=== PATIENT | male | born 1980 | race Caucasian/White ===

== ENCOUNTER 2021-01-20 12:06 | Outpatient (REF) | payer OTHER, SELFPAY ==
--- NOTE | ~2021-01-20 | XR_ITS ---
EXAMINATION: XR HAND, RIGHT CLINICAL INFORMATION: Right hand swelling. COMPARISON: None. TECHNIQUE: PA, lateral, and oblique views of the right hand. FINDINGS: There is a nondisplaced fracture base of 5th metacarpal. There is minimal soft tissue swelling. No additional bony abnormality seen. No joint abnormality seen. XR/XR hand RT min 3V IMPRESSION: Nondisplaced fracture base of 5th metacarpal. Mild soft tissue swelling. Results were conveyed to Dr. Justin Holden's office by phone at 12:46 p.m.
== END 2021-01-20 12:07 | disposition home or self-care (01) ==
LOC: HO.XRAY 12:06
PROVIDERS: PCP Internal Medicine; Visit Provider Family Medicine
DX: R60.0 Localized edema (principal); Z91.81 History of falling
CPT/HCPCS: 73130

== ENCOUNTER 2022-01-06 15:13 | Outpatient (REF) | payer OTHER, SELFPAY ==
[2022-01-06 15:58] LABS: COVID-19 Test Negative (Negative); IDNOW Serial# 16C4AD1C
== END 2022-01-06 15:14 | disposition home or self-care (01) ==
LOC: HO.LAB 15:13
PROVIDERS: Visit Provider Internal Medicine
DX: Z20.822 Contact with and (suspected) exposure to COVID-19 (principal)
CPT/HCPCS: 87635; C9803

== ENCOUNTER 2022-03-25 14:52 | Outpatient (REF) | payer OTHER, SELFPAY ==
[2022-03-25 15:08] LABS: MANUAL DIFF FLAG NO
[2022-03-25 15:15] LABS: Basophils Percent Auto 0.5 % (0-2); Eosinophils Absolute Auto 0.2 X10*3/uL (0.0-0.4); Eosinophils Percent Auto 3.1 % (0-4); Hematocrit 42.3 % (42.0-52.0); Hemoglobin 14.6 g/dl (14.0-18.0); Imm Gran Abs Auto 0.02 X10*3/uL (0.00-0.03); Imm Gran Pct Auto 0.3 % (0.0-0.4); Lymphocytes Absolute Auto 1.9 X10*3/uL (1.2-4.9); Lymphocytes Percent Auto 24.7 % (20-40); Mean Corpuscular HGB Conc 34.5 g/dl (31.0-36.0); Mean Corpuscular Hemoglobin 29.9 pg (27.0-33.0); Mean Corpuscular Volume 86.5 fL (80.0-98.0); Mean Platelet Volume 10.4 fL (9.4-12.4); Monocytes Absolute Auto 0.6 X10*3/uL (0.1-1.2); Monocytes Percent Auto 8.1 % (2-11); Neutrophils Absolute Auto 4.8 x10*3/uL (2.0-8.3); Neutrophils Percent Auto 63.3 % (45-73); Platelet Count 197 X10*3/uL (160-400); Red Blood Count 4.89 X10*6/uL (4.60-5.80); White Blood Count 7.6 X10*3/uL (4.8-10.8)
[2022-03-25 15:21] LABS: Prothrombin Time 11.1 SEC (10.0-13.1)
[2022-03-25 17:46] LABS: Alanine Aminotransferase 29 U/L (0-40); Albumin Level 4.3 g/dL (3.5-5.0); Alkaline Phosphatase 63 U/L (39-117); Aspartate Amino Transferase 80 U/L (5-37); Bilirubin Direct 0.2 mg/dL (0.0-0.5); Bilirubin Total 0.6 mg/dL (0.0-1.0); Iron 79 mcg/dL (45-160); Percent Iron Saturation 27 % (15-50); Total Iron Binding Capacity 289 mcg/dL (228-428); Total Protein 7.2 g/dL (6.5-8.0); Unsaturated Iron Binding 210 ug/dL
[2022-03-25 17:55] LABS: Ferritin 77 ng/mL (20-250); Lactate Dehydrogenase 170 U/L (118-273)
[2022-03-26 05:01] LABS: HBS Num1 > 1000.00 mIU/mL (0-7.99); HBc Num1 0.29 S/CO (0.00-0.79); HBsAGNum1 0.22 S/CO (0.00-0.99); Hepatitis B Core Antibody Nonreactive (Nonreactive); Hepatitis B Surface Antigen Negative (Negative); ~HepC Num1 0.06 S/CO (0.00-0.79); ~Hepatitis B Surface Antibody REACTIVE (Nonreactive); ~Hepatitis C Antibody Nonreactive (Nonreactive)
[2022-03-27 14:26] LABS: Anti Nuclear Antibody Screen NEGATIVE (NEGATIVE)
[2022-03-27 14:37] LABS: Alpha 1 Anti-trypsin 133 mg/dL (83-199); Ceruloplasmin 26 mg/dL (18-36)
[2022-03-29 23:02] LABS: Smooth Muscle Antibody <20 U (<20)
[2022-03-29 23:26] LABS: FIB-ALT 27 U/L (9-46); FIB-Alpha-2-Macroglobulin 171 mg/dL (106-279); FIB-Apolipoprotein A1 181 mg/dL (94-176); FIB-GGT 36 U/L (3-95); FIB-Haptoglobin 107 mg/dL (43-212); FIB-Total Bilirubin 0.5 mg/dL (0.2-1.2); Liver Fibrosis Score 0.12; Liver Fibrosis Stage F0; Nec Inflam Act Grade A0
[2022-03-30 16:02] LABS: Mitochondrial Antibodies NEGATIVE (NEGATIVE)
== END 2022-03-25 14:53 | disposition home or self-care (01) ==
LOC: HO.LAB 14:52
PROVIDERS: PCP Internal Medicine; Visit Provider Internal Medicine
DX: R79.89 Other specified abnormal findings of blood chemistry (principal)
CPT/HCPCS: 36415; 80076; 81596; 82103; 82390; 82550; 82728; 83540; 83615; 85025; 85610; 86015; 86038; 86039; 86255; 86256; 86704; 86706; 86803; 87340

== ENCOUNTER 2022-05-12 10:20 | Outpatient (REF) | payer OTHER, SELFPAY ==
--- NOTE | ~2022-05-12 | US_ITS ---
EXAMINATION: US ABDOMEN COMPLETE CLINICAL INFORMATION: Elevated LFTs. COMPARISON: None TECHNIQUE: Real-time imaging of the abdominal viscera. FINDINGS: PANCREAS: Normal. ABDOMINAL AORTA: The proximal, mid, and distal segments are normal in caliber. INFERIOR VENA CAVA: Visualized portions are normal. LIVER: Normal. The liver is normal in size. The liver contour is normal. Parenchymal echogenicity is normal. No focal hepatic lesion. There is no intrahepatic biliary duct dilatation seen. GALLBLADDER: There is a hypoechoic lesion along the inner gallbladder wall measuring 0.2 x 0.2 x 0.3 cm. Gallbladder wall thickness is 0.3 cm. The gallbladder is physiologically distended without evidence of stones, sludge, wall thickening or pericholecystic fluid. COMMON BILE DUCT: Normal in caliber measuring 0.3 cm in diameter. RIGHT KIDNEY: Normal. No hydronephrosis. No renal calculi or focal parenchymal lesions. The kidney measures 9.1 cm in maximum dimension. LEFT KIDNEY: There is a small echogenic stone measuring 0.4 x 0.6 x 0.6 cm without caliectasis. No hydronephrosis or focal parenchymal lesions. The kidney measures 8.8 cm in maximum dimension. SPLEEN: Normal. The spleen measures 8.2 cm in maximum dimension. FREE FLUID: None. US/US abdomen complete IMPRESSION: Nonobstructive echogenic stone upper pole left kidney without caliectasis. Small gallbladder polyp measuring 3 mm. The rest of the abdominal ultrasound is unremarkable.
== END 2022-05-12 10:21 | disposition home or self-care (01) ==
LOC: HO.US 10:20
PROVIDERS: Visit Provider Internal Medicine
DX: R79.89 Other specified abnormal findings of blood chemistry (principal)
CPT/HCPCS: 76700

== ENCOUNTER 2022-09-04 09:52 | Day surgery (SDC) | payer OTHER, SELFPAY ==
--- NOTE | 2022-09-03 12:24 | HO.ANESPROP2 ---
HPI - Anesthesia Eval Consult details Narrative: 42yo M for Upper Endoscopy with Balloon Dilitation PMFSH Past Medical History Medical History Elevated aspartate aminotransferase level Hyperlipidemia Vertigo Surgical History Surgical History H/O oral surgery Social History Social History Patient Tobacco Use Status: Never used Tobacco Use of substances other than those prescribed or required for medical reasons: No Are you DNR?: No Advance Directives: No Advance Directives Information Provided: Yes Meds Allergies Allergy/AdvReac Type Severity Reaction Status Date / Time No Known Allergies Allergy Verified 09/03/22 12:29 Home Medications Medication Instructions Recorded Confirmed Last Taken Type No Known Home Meds 09/03/22 09/03/22 Unknown History Exam Exam Date and Time: September 03, 2022 1224 Pertinent Lab Results Pertinent Lab Results: Laboratory Tests 03/25/22 15:07 WBC 7.6 Hgb 14.6 Hct 42.3 Plt Count 197 Assessment and Plan Assessment Anesthesia Assessment: Chart Reviewed
[2022-09-04 10:09] VITALS: BP 115/83; PULSE 56; RESP 18; TEMP 36.1; O2SAT 99; BMI 25.5
[2022-09-04] MEDS: Lactated Ringers 1,000 ML 100 ML IVCONT (10:31)
--- NOTE | 2022-09-04 11:05 | PM.ANESPN ---
Subjective Subjective Date of Service: 09/04/22 Physical Exam Vital Signs: Vital Signs: Last Vital Signs Temp 97.0 F 09/04/22 10:09 Pulse 56 09/04/22 10:09 Resp 18 09/04/22 10:09 BP 115/83 09/04/22 10:09 Pulse Ox 99 09/04/22 10:09 O2 Del Method 09/04/22 10:09 BMI result Body Mass Index 25.5 Progress Note: A&P Time Spent With Patient Time: Total time managing care of this patient today ____ minutes.
--- NOTE | 2022-09-04 11:52 | P.BOP_ITS ---
Brief Operative Note Date of Service: 09/04/22 Pre-op diagnosis: Dysphagia Post-op diagnosis: other (Hiatal hernia) Procedure: EGD with balloon dilation and biopsies Surgeon: James Rodriguez Anesthesia: MAC Was an Ophthalmic Technician used for this Procedure?: No Estimated blood loss (mL): 2.0 Pathology: other (A. Esophagus at 25cm) Condition: stable Disposition: PACU
[2022-09-04 11:53] VITALS: BP 97/59; PULSE 97; RESP 16; TEMP 36.8; O2SAT 97
[2022-09-04 12:14] VITALS: BP 118/74; PULSE 86; RESP 18; TEMP 36.7; O2SAT 99
--- NOTE | 2022-09-04 21:07 | OP_ITS ---
SURGEON: James Rodriguez MD INDICATIONS: The patient presents for evaluation of intermittent dysphagia. Full consent has been obtained from him for this, including risks of bleeding and perforation. PREOPERATIVE DIAGNOSIS: Dysphagia. POSTOPERATIVE DIAGNOSIS: PROCEDURE PERFORMED: Esophagogastroduodenoscopy with balloon dilation of the gastroesophageal junction and biopsies. ESTIMATED BLOOD LOSS: COMPLICATIONS: ANESTHESIA: Monitored anesthesia care. ASSISTANTS: SPECIMENS: POSTOPERATIVE DIAGNOSES: Dysphagia, small hiatal hernia, rule out eosinophilic esophagitis. DESCRIPTION OF PROCEDURE: The patient was placed in the left lateral decubitus position. The Olympus video gastroscope was passed into the posterior oropharynx and upper esophagus under direct vision. The scope was passed slowly to the distal esophagus. The gastroesophageal junction appeared at 38 cm. This area was notable for some slight edema, but no evidence of any definitive esophageal ring nor stricture. There was no inflammation nor Moss's mucosa. The scope easily entered into the stomach. There was a small hiatal hernia. The scope was advanced to the pylorus and the duodenum was cannulated to the descending portion. The duodenum including the bulb appeared normal without mass or ulceration. The scope was withdrawn back in the stomach. The gastric antrum and body appeared normal with good peristalsis. The scope was retroflexed visualizing the proximal stomach carefully, which appeared normal, without any sign of mass or ulceration. The scope was straightened and withdrawn back into the esophagus. With insufflation of air I did not visualize any definitive stricture nor ring at the gastroesophageal junction. However, due to his symptoms, I did use a [employer] incremental balloon to dilate the gastroesophageal junction from 18 mm to 19 mm at the recommended pressure for 60 seconds each. There was heme noted post dilation. The scope was withdrawn through the remainder of the esophagus. The proximal esophagus appeared normal without any esophageal rings, stricture, nor web. Biopsies were obtained at 25 cm to rule out eosinophilic esophagitis. The scope was withdrawn from the patient. He tolerated the procedure well and was returned to the recovery area in stable condition. IMPRESSION: 1. Small hiatal hernia. 2. Status post balloon dilation of gastroesophageal junction. 3. Rule out eosinophilic esophagitis. PLAN: The results of the biopsies will be checked. I am going to start him on omeprazole 20 mg daily for at least a month or 2. We shall see if the balloon dilation and the medication help improve his swallowing in regard to the intermittent episodes of dysphagia. He will be seen in followup in the Spring. He will have a followup liver profile at that time as well. This has been discussed with his . He was advised not to use any aspirin and NSAIDs for at least a week. MD DARRELL Boogie/GUSTAVO / [id number] MTDD
== END 2022-09-04 12:59 | disposition home or self-care (01) ==
PROVIDERS: PCP Internal Medicine; Visit Provider Internal Medicine
PROC: (CPT 43249; principal; 2022-09-04 11:10)
DX: R13.10 Dysphagia, unspecified (principal); K44.9 Diaphragmatic hernia without obstruction or gangrene; E78.5 Hyperlipidemia, unspecified; R42 Dizziness and giddiness; R79.89 Other specified abnormal findings of blood chemistry
CPT/HCPCS: 43249; 43239; 88305; C1726

== ENCOUNTER 2022-12-04 10:47 | Outpatient (REF) | payer OTHER, SELFPAY ==
[2022-12-04 10:55] LABS: MANUAL DIFF FLAG NO
[2022-12-04 11:33] LABS: Basophils Absolute Auto 0.1 X10*3/uL (0.0-0.2); Basophils Percent Auto 0.8 % (0-2); Eosinophils Absolute Auto 0.2 X10*3/uL (0.0-0.4); Eosinophils Percent Auto 3.6 % (0-4); Hematocrit 43.8 % (42.0-52.0); Hemoglobin 15.1 g/dl (14.0-18.0); Imm Gran Abs Auto 0.02 X10*3/uL (0.00-0.03); Imm Gran Pct Auto 0.3 % (0.0-0.4); Lymphocytes Absolute Auto 1.8 X10*3/uL (1.2-4.9); Lymphocytes Percent Auto 29.7 % (20-40); Mean Corpuscular HGB Conc 34.5 g/dl (31.0-36.0); Mean Corpuscular Volume 87.1 fL (80.0-98.0); Mean Platelet Volume 10.6 fL (9.4-12.4); Monocytes Absolute Auto 0.5 X10*3/uL (0.1-1.2); Monocytes Percent Auto 7.9 % (2-11); Neutrophils Absolute Auto 3.5 x10*3/uL (2.0-8.3); Neutrophils Percent Auto 57.7 % (45-73); Platelet Count 217 X10*3/uL (160-400); Red Blood Count 5.03 X10*6/uL (4.60-5.80); Red Cell Distribution Width 13.2 % (11.0-16.0); White Blood Count 6.1 X10*3/uL (4.8-10.8)
[2022-12-04 11:39] LABS: Appearance Urine Clear; Color Urine Yellow; Glucose Urine UA Negative (Negative); Leukocyte Esterase Urine Negative (Negative); Nitrite Urine Negative (Negative); PH 5.5 (5.0-9.0); Specific Gravity - Urine 1.025 (1.005-1.025); Urine Blood Negative (Negative); Urine Ketones Trace mg/dL (Negative); Urine Protein Negative (Neg-Trace)
[2022-12-04 12:03] LABS: Alanine Aminotransferase 36 U/L (0-40); Albumin Level 4.1 g/dL (3.5-5.0); Alkaline Phosphatase 69 U/L (39-117); Anion Gap 13 (12-20); Aspartate Amino Transferase 87 U/L (5-37); Bilirubin Direct 0.2 mg/dL (0.0-0.5); Blood Urea Nitrogen 17 mg/dL (9-16); Calcium 9.4 mg/dL (8.4-10.2); Carbon Dioxide 27 mmol/L (22-29); Chloride 104 mmol/L (96-108); Cholesterol 303 mg/dL; Estimated Glomerular Filt Rate > 60; Glucose Fasting 81 mg/dL (60-99); HDL Cholesterol 63 mg/dL; LDL Cholesterol Calculated 226 mg/dl; Potassium 4.3 mmol/L (3.3-5.1); Sodium 140 mmol/L (135-145); Total Protein 6.8 g/dL (6.5-8.0); Triglycerides 71 mg/dL
[2022-12-04 12:07] LABS: PSA,Total (Free>4and<10) 0.42 ng/mL (0.00-4.00)
== END 2022-12-04 10:48 | disposition home or self-care (01) ==
LOC: HO.LNP 10:47
PROVIDERS: Visit Provider Internal Medicine
DX: Z00.00 Encounter for general adult medical examination without abnormal findings (principal); Z12.5 Encounter for screening for malignant neoplasm of prostate; E78.00 Pure hypercholesterolemia, unspecified; K76.89 Other specified diseases of liver
CPT/HCPCS: 80053; 80061; 80076; 81003; 84153; 85025

== ENCOUNTER 2023-01-30 14:58 | Emergency (ER) | payer OTHER, SELFPAY ==
[2023-01-30 15:03] VITALS: BP 116/86; PULSE 79; RESP 18; TEMP 36.1; O2SAT 97; BMI 25.1
--- NOTE | 2023-01-30 15:05 | ED_ITS ---
HPI - General Adult General Chief complaint: Skin/Abscess/Foreign Body Stated complaint: l pinky inj Time Seen by Provider: 01/30/23 15:23 Source: patient Mode of arrival: ambulatory Limitations: no limitations History of Present Illness HPI narrative: 42-year-old male left-hand dominant healthy here with piece of pressure treated wood in left 5th digit which occurred today. Patient tried removing but was unsuccessful at home. Patient denies any weakness, numbness or tingling of the extremity Related Data Previous Rx's Medication Instructions Recorded cephalexin 500 mg capsule 500 mg PO BID #14 caps 01/30/23 Allergies Allergy/AdvReac Type Severity Reaction Status Date / Time No Known Allergies Allergy Verified 09/03/22 12:29 Review of Systems Review of Systems: Yes all other systems are reviewed and are negative Constitutional: Constitutional: Reports no additional constitutional complaints, Denies body ache(s), Denies chills, Denies fever(s), Denies headache(s) and Denies weakness Eyes: Eyes: Reports no additional eye complaints and Denies change in vision ENT: Reports system reviewed and no additional complaints, except as documented, Denies dizziness, Denies headache(s), Denies nasal congestion, Denies nasal discharge and Denies neck pain Cardiovascular: Cardiovascular: Reports no additional cardiovascular complaints, Denies chest pain, Denies leg edema and Denies dyspnea Respiratory: Respiratory: Reports no additional respiratory complaints, Denies cough and Denies dyspnea Gastrointestinal: Gastrointestinal: Reports no additional gastrointestinal complaints, Denies abdominal pain, Denies diarrhea, Denies nausea and Denies vomiting Genitourinary: Genitourinary: Denies urinary incontinence Musculoskeletal: Musculoskeletal: Reports no additional musculoskeletal complaints, Denies back pain, Reports arthralgias, Denies joint swelling, Denies neck pain, Denies numbness and Denies tingling Integumentary/Breasts: Skin/Breast: Reports system reviewed and no additional complaints, except as docu and Denies rash Neurologic: Reports system reviewed and no additional complaints, except as documented, Denies dizziness, Denies headache(s), Denies numbness, Denies tingling and Denies weakness PMF Past Medical History Attestation statement: The following information was validated with the patient. Source: old records reviewed and nursing notes reviewed Medical History Elevated aspartate aminotransferase level Hyperlipidemia Vertigo Surgical History H/O oral surgery Social History Social History Alcohol intake: current Alcohol intake frequency: a few times a week Patient Tobacco Use Status: Never used Tobacco Physical Exam ED Vital Signs: Vital Signs - 24 hr 01/30/23 15:03 01/30/23 15:30 Temperature 97 F Pulse Rate 79 74 Respiratory Rate 18 Blood Pressure 116/86 Pulse Oximetry 97 97 Oxygen Delivery Method Room Air Room Air BMI result Body Mass Index 25.1 Const General: cooperative, healthy appearing and comfortable Orientation/consciousness: patient oriented x3 Limitations: no limitations HENMT Head: Yes normal to inspection Ears: hearing grossly normal bilaterally Eyes General: appearance normal, both eyes and all related structures Neck Neck: Yes normal visual inspection Chest Chest palpation & inspection: normal inspection of the chest Resp Effort & Inspection: normal respiratory effort Skin General skin exam: no rashes or lesions noted Neuro General: patient oriented x3 Cognition (Neuro): normal cognition Gait exam (Neuro): Normal gait present Extrem Other: Over the left hand on the 5th distal aspect of the digit there is an abrasion noted over the volar aspect with with local ecchymosis, swelling. Visually I do not see a FB however when I run the tweezers over the wound it feels that there is a FB under the skin Course Course Course Narrative: 42 year old male presents for evaluation of a wood splinter to left 5th finger. X-ray ordered Reevaluation(s) Reevaluation #1: Initially it felt as if there was a FB under the skin on palpation however after making a small incision and exploring the wound thoroughly I do not feel or visualize a FB. It is possible it may be deeper or was removed [employer] without the patient noticing. Will refer to hand surgery, prescribe pptx antibiotics. Medications Administered Discontinued Medications Generic Name Dose Route Start Last Admin Trade Name Freq PRN Reason Stop Dose Admin Lidocaine HCl 2 ml 01/30/23 15:27 01/30/23 15:38 Lidocaine Hcl 1 % Mpf 2 Ml Vial INFILTRATI 01/30/23 15:28 2 ml ONCE ONE Administration Lidocaine HCl 2 ml 01/30/23 15:27 01/30/23 15:38 Lidocaine Hcl 1 % Mpf 2 Ml Vial INFILTRATI 01/30/23 15:28 2 ml ONCE ONE Administration Procedures Nerve Block Nerve Block 1: Local Anesthetic: lidocaine 1% Amount of anesthesia used (mL): 3 Side: left Nerve Blocks: digital Procedure Successful: No Patient Tolerated Procedure: well Medical Decision Making Medical Decision Making MDM Narrative: 42-year-old male here with concern for piece of pressure treated would within his left hand 5th digit which was unable to remove prior to arrival Will need digital, attempt at soft tissue foreign body removal Differential Diagnosis Differential Diagnoses: The differential diagnosis associated with the presentation includes Consult Healthcare Provider Management of the patient was discussed with: Doctor Of Nursing Practice Concern for retained FB-Spoke to [facility] so that patient may f/u outpatient with hand surgery Discharge Plan Discharge Clinical Impression: Foreign body (FB) in soft tissue Patient Disposition: Home, Self-Care Instructions: Soft Tissue Foreign Body (ED) Additional Instructions: I am unsure if there is still a piece of wood in your finger. Therefore I am having you follow-up with the hand surgeon to make sure that there is no additional foreign body. Please monitor the site for infection return for fever, drainage, redness. Take Motrin or Tylenol for pain as needed. Take the antibiotics as prescribed Prescriptions: New cephalexin 500 mg capsule 500 mg PO BID Qty: 14 0RF Referrals: [facility] – [place] [facility] [Provider Group] - 1 week (Dr Fern Gilliland ) Domingo Barr MD [Primary Care Provider] - 1 week (as needed)
[2023-01-30 15:30] VITALS: PULSE 74; O2SAT 97
--- NOTE | 2023-01-30 15:31 | PC.NURSE ---
Patient presents with splinter to the right pinky finger. Patient otherwise well appearing without any other complaints.
--- NOTE | 2023-01-30 15:33 | PC.NURSE ---
Pt presents with sliver in left pinky finger that he got from picking up a piece of pressure treated wood about 2hrs ago. Pt rates pain 3/10. Pt airway open and patent, no obvious signs of distress, equal chest rise and fall, no difficulty/labored breathing. No edema noted.
[2023-01-30] MEDS: Lidocaine HCl 1 % MPF 2 ML VIAL INFILTRATI ×2 (15:38)
[2023-01-30 16:17] VITALS: BP 118/73; PULSE 67; RESP 16; O2SAT 100
== END 2023-01-30 16:20 | disposition home or self-care (01) ==
LOC: HO.ED 16:13
PROVIDERS: Emergency Provider Emergency Medicine; PCP Internal Medicine
DX: S61.247A Puncture wound with foreign body of left little finger without damage to nail, initial encounter (principal); W45.8XXA Other foreign body or object entering through skin, initial encounter; Y93.9 Activity, unspecified; Y92.019 Unspecified place in single-family (private) house as the place of occurrence of the external cause; Y99.9 Unspecified external cause status
CPT/HCPCS: 10120; 99284

== ENCOUNTER 2023-03-05 10:41 | Outpatient (REF) | payer OTHER, SELFPAY ==
[2023-03-05 11:49] LABS: Alanine Aminotransferase 51 U/L (0-40); Albumin Level 4.1 g/dL (3.5-5.0); Alkaline Phosphatase 71 U/L (39-117); Aspartate Amino Transferase 96 U/L (5-37); Bilirubin Direct 0.3 mg/dL (0.0-0.5); Bilirubin Total 1.1 mg/dL (0.0-1.0); Cholesterol 191 mg/dL; HDL Cholesterol 67 mg/dL; LDL Cholesterol Calculated 112 mg/dl; Total Protein 6.7 g/dL (6.5-8.0); Triglycerides 63 mg/dL
== END 2023-03-05 10:42 | disposition home or self-care (01) ==
LOC: HO.LNP 10:41
PROVIDERS: Visit Provider Internal Medicine
DX: E78.00 Pure hypercholesterolemia, unspecified (principal)
CPT/HCPCS: 80061; 80076

== ENCOUNTER 2023-12-09 11:19 | Outpatient (REF) | payer OTHER, SELFPAY ==
[2023-12-09 11:23] LABS: MANUAL DIFF FLAG NO
[2023-12-09 11:52] LABS: Basophils Absolute Auto 0.1 X10*3/uL (0.0-0.2); Basophils Percent Auto 0.8 % (0-2); Eosinophils Absolute Auto 0.3 X10*3/uL (0.0-0.4); Eosinophils Percent Auto 4.9 % (0-4); Hematocrit 41.5 % (42.0-52.0); Hemoglobin 14.4 g/dl (14.0-18.0); Imm Gran Abs Auto 0.02 X10*3/uL (0.00-0.03); Imm Gran Pct Auto 0.3 % (0.0-0.4); Lymphocytes Absolute Auto 1.9 X10*3/uL (1.2-4.9); Lymphocytes Percent Auto 30.9 % (20-40); Mean Corpuscular HGB Conc 34.7 g/dl (31.0-36.0); Mean Corpuscular Hemoglobin 30.3 pg (27.0-33.0); Mean Corpuscular Volume 87.4 fL (80.0-98.0); Monocytes Absolute Auto 0.4 X10*3/uL (0.1-1.2); Monocytes Percent Auto 7.2 % (2-11); Neutrophils Absolute Auto 3.4 x10*3/uL (2.0-8.3); Neutrophils Percent Auto 55.9 % (45-73); Platelet Count 186 X10*3/uL (160-400); Red Blood Count 4.75 X10*6/uL (4.60-5.80); Red Cell Distribution Width 13.2 % (11.0-16.0); White Blood Count 6.1 X10*3/uL (4.8-10.8)
[2023-12-09 11:56] LABS: Appearance Urine Clear; Color Urine Yellow; Glucose Urine UA Negative (Negative); Leukocyte Esterase Urine Negative (Negative); Nitrite Urine Negative (Negative); Specific Gravity - Urine 1.025 (1.005-1.025); Urine Blood Negative (Negative); Urine Ketones Negative (Negative); Urine Protein Negative (Neg-Trace)
[2023-12-09 12:01] LABS: Bacteria Urine None Seen (None Seen); Hyaline Casts Urine 0-2 /LPF (0-2); RBC Urine 0-2 /HPF (0-2); Squamous Epithelial Cell Urine 0-2 /HPF (0-2); WBC Urine 0-5 /HPF (0-5)
[2023-12-09 12:11] LABS: Alanine Aminotransferase 43 U/L (0-40); Albumin Level 3.9 g/dL (3.5-5.0); Alkaline Phosphatase 57 U/L (39-117); Anion Gap 11 (12-20); Aspartate Amino Transferase 84 U/L (5-37); Bilirubin Direct 0.3 mg/dL (0.0-0.5); Bilirubin Total 0.7 mg/dL (0.0-1.0); Blood Urea Nitrogen 13 mg/dL (9-16); Calcium 9.5 mg/dL (8.4-10.2); Carbon Dioxide 27 mmol/L (22-29); Chloride 108 mmol/L (96-108); Cholesterol 174 mg/dL (<200); Estimated Glomerular Filt Rate > 60; Glucose Fasting 96 mg/dL (60-99); HDL Cholesterol 71 mg/dL (>40); LDL Cholesterol Calculated 92 mg/dL (<100); Potassium 4.1 mmol/L (3.3-5.1); Sodium 142 mmol/L (135-145); Total Protein 6.7 g/dL (6.5-8.0); Triglycerides 58 mg/dL (<150)
[2023-12-09 12:29] LABS: PSA,Total (Free>4and<10) 0.37 ng/mL (0.00-4.00)
== END 2023-12-09 11:20 | disposition home or self-care (01) ==
LOC: HO.LNP 11:19
PROVIDERS: Visit Provider Internal Medicine
DX: Z00.00 Encounter for general adult medical examination without abnormal findings (principal); Z12.5 Encounter for screening for malignant neoplasm of prostate; E78.00 Pure hypercholesterolemia, unspecified; K76.89 Other specified diseases of liver
CPT/HCPCS: 80053; 80061; 80076; 81001; 82248; 84153; 85025

== ENCOUNTER 2024-04-24 11:06 | Outpatient (REF) | payer BC, SELFPAY ==
[2024-04-24 11:20] LABS: MANUAL DIFF FLAG NO
[2024-04-24 11:42] LABS: Basophils Percent Auto 0.6 % (0-2); Eosinophils Absolute Auto 0.2 X10*3/uL (0.0-0.4); Hematocrit 41.6 % (42.0-52.0); Hemoglobin 14.7 g/dl (14.0-18.0); Imm Gran Abs Auto 0.02 X10*3/uL (0.00-0.03); Imm Gran Pct Auto 0.3 % (0.0-0.4); Lymphocytes Absolute Auto 1.4 X10*3/uL (1.2-4.9); Lymphocytes Percent Auto 22.3 % (20-40); Mean Corpuscular HGB Conc 35.3 g/dl (31.0-36.0); Mean Corpuscular Hemoglobin 31.1 pg (27.0-33.0); Mean Corpuscular Volume 88.1 fL (80.0-98.0); Mean Platelet Volume 10.3 fL (9.4-12.4); Monocytes Absolute Auto 0.5 X10*3/uL (0.1-1.2); Monocytes Percent Auto 8.2 % (2-11); Neutrophils Absolute Auto 4.1 x10*3/uL (2.0-8.3); Neutrophils Percent Auto 65.6 % (45-73); Platelet Count 197 X10*3/uL (160-400); Red Blood Count 4.72 X10*6/uL (4.60-5.80); Red Cell Distribution Width 12.7 % (11.0-16.0); White Blood Count 6.3 X10*3/uL (4.8-10.8)
[2024-04-24 12:07] LABS: Alanine Aminotransferase 46 U/L (0-40); Albumin Level 4.1 g/dL (3.5-5.0); Alkaline Phosphatase 71 U/L (39-117); Anion Gap 11 (12-20); Aspartate Amino Transferase 91 U/L (5-37); Bilirubin Total 0.6 mg/dL (0.0-1.0); Blood Urea Nitrogen 11 mg/dL (9-16); Calcium 9.4 mg/dL (8.4-10.2); Carbon Dioxide 28 mmol/L (22-29); Chloride 105 mmol/L (96-108); Estimated Glomerular Filt Rate > 60; Glucose Random 86 mg/dL (60-115); Potassium 5.2 mmol/L (3.3-5.1); Sodium 139 mmol/L (135-145); Total Protein 7.1 g/dL (6.5-8.0)
[2024-04-24 12:29] LABS: Erythrocyte Sedimentation Rate 7 MM/HR (0-15)
== END 2024-04-24 11:07 | disposition home or self-care (01) ==
LOC: HO.LAB 11:06
PROVIDERS: PCP Internal Medicine; Visit Provider Family Medicine
DX: R10.12 Left upper quadrant pain (principal)
CPT/HCPCS: 36415; 80053; 85025; 85652

== ENCOUNTER 2024-04-27 11:04 | Outpatient (REF) | payer BC, SELFPAY ==
[2024-04-27 11:28] LABS: Potassium 4.2 mmol/L (3.3-5.1)
== END 2024-04-27 11:05 | disposition home or self-care (01) ==
LOC: HO.LNP 11:04
PROVIDERS: Visit Provider Internal Medicine
DX: E78.5 Hyperlipidemia, unspecified (principal)
CPT/HCPCS: 84132

== ENCOUNTER 2024-12-07 11:01 | Outpatient (REF) | payer BC, SELFPAY ==
[2024-12-07 11:04] LABS: MANUAL DIFF FLAG NO
[2024-12-07 11:37] LABS: Basophils Absolute Auto 0.1 X10*3/uL (0.0-0.2); Basophils Percent Auto 1.3 % (0-2); Eosinophils Absolute Auto 0.3 X10*3/uL (0.0-0.4); Eosinophils Percent Auto 4.1 % (0-4); Hematocrit 42.7 % (42.0-52.0); Hemoglobin 14.8 g/dl (14.0-18.0); Imm Gran Abs Auto 0.02 X10*3/uL (0.00-0.03); Imm Gran Pct Auto 0.3 % (0.0-0.4); Lymphocytes Absolute Auto 1.8 X10*3/uL (1.2-4.9); Lymphocytes Percent Auto 28.1 % (20-40); Mean Corpuscular HGB Conc 34.7 g/dl (31.0-36.0); Mean Corpuscular Volume 86.6 fL (80.0-98.0); Mean Platelet Volume 10.8 fL (9.4-12.4); Monocytes Absolute Auto 0.5 X10*3/uL (0.1-1.2); Monocytes Percent Auto 8.2 % (2-11); Neutrophils Absolute Auto 3.7 x10*3/uL (2.0-8.3); Platelet Count 196 X10*3/uL (160-400); Red Blood Count 4.93 X10*6/uL (4.60-5.80); Red Cell Distribution Width 13.2 % (11.0-16.0); White Blood Count 6.3 X10*3/uL (4.8-10.8)
[2024-12-07 11:38] LABS: Appearance Urine Clear; Color Urine Yellow; Glucose Urine UA Negative (Negative); Leukocyte Esterase Urine Negative (Negative); Nitrite Urine Negative (Negative); PH 6.5 (5.0-9.0); Specific Gravity - Urine 1.025 (1.005-1.025); Urine Blood Negative (Negative); Urine Ketones Trace mg/dL (Negative); Urine Protein Negative (Neg-Trace)
[2024-12-07 11:41] LABS: Bacteria Urine None Seen (None Seen); Hyaline Casts Urine 0-2 /LPF (0-2); RBC Urine 0-2 /HPF (0-2); Squamous Epithelial Cell Urine 0-2 /HPF (0-2); WBC Urine 0-5 /HPF (0-5)
[2024-12-07 11:53] LABS: Albumin Level 3.9 g/dL (3.5-5.0); Alkaline Phosphatase 61 U/L (39-117); Anion Gap 9 (12-20); Aspartate Amino Transferase 132 U/L (5-37); Bilirubin Total 0.6 mg/dL (0.0-1.0); Blood Urea Nitrogen 14 mg/dL (9-16); Carbon Dioxide 27 mmol/L (22-29); Chloride 107 mmol/L (96-108); Cholesterol 183 mg/dL (<200); Estimated Glomerular Filt Rate > 60; Glucose Fasting 85 mg/dL (60-99); HDL Cholesterol 68 mg/dL (>40); LDL Cholesterol Calculated 105 mg/dL (<100); Potassium 3.9 mmol/L (3.3-5.1); Sodium 139 mmol/L (135-145); Triglycerides 52 mg/dL (<150)
[2024-12-07 13:12] LABS: Alanine Aminotransferase 66 U/L (0-40)
== END 2024-12-07 11:02 | disposition home or self-care (01) ==
LOC: HO.LNP 11:01
PROVIDERS: Visit Provider Internal Medicine
DX: Z00.00 Encounter for general adult medical examination without abnormal findings (principal); E78.00 Pure hypercholesterolemia, unspecified; N40.0 Benign prostatic hyperplasia without lower urinary tract symptoms; Z12.5 Encounter for screening for malignant neoplasm of prostate
CPT/HCPCS: 80053; 80061; 81001; 84153; 85025

== ENCOUNTER 2025-04-13 15:11 | Outpatient (AMB) | payer BC, SELFPAY ==
--- OUTSIDE RECORDS SUMMARY | 2025-04-13 15:13 | XMS_ITS | Patient Health Record ---
Author Organization [facility] Address [address] [place] [address] Care Team Providers Care Supervisor Slashing Department Name Role Phone Domingo Barr MD Primary Care Provider Mika Fisher Unavailable [phone] Reason For Referral No Information Social History Tobacco Use: Social History Observation Description Date Details (start date - stop date) Never Smoker NA - NA Tobacco Use/Smoking Question Answer Notes Are you a: nonsmoker Additional Findings: Tobacco Non-User Current no n-smoker Alcohol Screen Question Answer Notes Did you have a drink containing alcohol in the p ast year? Yes Points 0 Interpretation Negative Problems Problem Type SNOMED Code ICD Code Onset Dates Problem Status W/U Status Risk Notes Problem Plantar fascial fibromatosis (M72.2) Active confirmed Plan Of Treatment No Information Insurance Providers Payer Name Payer Address Payer Phone Subscriber Number Group Number Insured Name Patient Relationship to Insured Coverage Start Date Coverage End Date [employer] [address] [place] [address] [id number] Kannan Rodriguez Self - patient is the insured Medical (General) History Medical History History ICD Code Chicken pox
--- OUTSIDE RECORDS SUMMARY | 2025-04-13 15:13 | XMS_ITS | Patient Health Record ---
Author Organization [facility] Address [address] [place] [address] Care Team Providers Care Green Building Energy Engineer Name Role Phone Momo PELAYO, Domingo Primary Care Provider James Rivers Unavailable [phone] Allergies No Known Allergies Reason For Referral No Information Medications Medication SIG (Take, Route, Frequency, Duration) Notes Start Date End Date Status Atorvastatin Calcium 10 MG Oral for 90 Active Omeprazole 20 MG Oral for 90 A ctive Immunizations Vaccine Route Administration Date Status Comme nts Influenza Unknown 06/20/2021 Administered Social History Tobacco Use: Social History Observation Description Date Details (start date - stop date) Never Smoker NA - NA Tobacco Use/Smoking Question Answer Notes Patient is a nonsmoker Alcohol Screen Question Answer Notes Did you have a drink contain ing alcohol in the past year? Yes How often did you have a dri nk containing alcohol in the past year? 2 to 4 times a month (2 points) How many drinks did you have on a typical day when you were drinking in the past year? 1 or 2 drinks (0 point) How often did you have 6 or more drinks on one occasion in the past year? Never (0 point) Points 2 Interpretation Negative Section Notes: Nonsmoker; no sig alcohol Nonsmoker; no sig alcohol Nonsmoker; no sig alcohol Problems Problem Type SNOMED Code ICD Code Onset Dates Problem Status W/U Status Risk Notes Problem Dysphagia (15459882) Dysphagia (R13.10) Active confirmed Problem Elevated liver enzymes level ([id number]) Elevated liver function tests (R79.89) Active confirmed Problem Fatty liver (K76.0) Active confirmed Plan Of Treatment Pending Test Test Name Order Date LIVER PROFILE 07/21/2022 LIVER PROFILE 03/25/2022 LDH 07/21/2022 LDH 03/25/2022 CPK 07/21/2022 CPK 03/25/2022 CBC w DIFF 03/25/2022 PROTHROMBIN TIME (PT, INR) 03/25/2022 HEPATITIS B, C PROFILE 03/25/2022 [id number] (A1A) 03/25/2022 ALDOLASE 07/21/2022 US ABD 03/25/2022 FLUOR. ANTINUCLEAR AB SCREEN (SAULO) 02/2022 Future Test Test Name Order Date UPPER GI ENDOSCOPY BALLOOON DILATION OF ESOPH 07/21/2022 Insurance Providers Payer Name Payer Address Payer Phone Subscriber Number Group Number Insured Name Patient Relationship to Insured Coverage Start Date Coverage End Date [facility] [address] [place] [address] [phone] [id number] SHEYLA GARCIA Self - patient is the insured Medical (General) History Medical History History ICD Code Denies UT,DM,CVA,Lung disease,renal dise ase Hyperlipidemia Long-standing elevation of h is AST with otherwise normal liver profiles and a completely negative liver workup in 2021. His CPK and LDH were normal as well. It was felt that his hyperlipidemia could be causing fatty liver and possible elevated AST on that basis GERD and dysphagia. He under went an upper endoscopy in August of 2022 with a finding of a small hiatal hernia but no definitive esophageal ring or stricture. There was no esophagitis nor Moss's esophagus. I did use a large balloon to 19 mm to dilate the gastroesophageal junction. Biopsies from proximal esophagus were negative for eosinophilic esophagitis. Subsequent to that procedure, as well as with remaining on omeprazole, he did have a definite improvement in his swallowing. Surgical History Surgery Date(Month/Year)
[2025-04-13 16:12] VITALS: BP 100/70; PULSE 85; TEMP 37.1; O2SAT 97; BMI 25.8
--- NOTE | 2025-04-13 16:12 | MHC.OFFWIV ---
Intake Vital Signs 04/13/25 16:12 Height 5 ft 8 in Weight 169 lb 8 oz BMI 25.8 BP 100/70 Blood Pressure Location Rt brachial Position Sitting Pulse 85 Pulse Source Pulse Oximeter Temp 98.8 F Temp Source Oral Pulse Oximetry (%) 97 Oxygen Delivery Method Room Air Intake Visit Reasons: EP ? cellulitis on LT leg Patient Tobacco Use Status: Never used Tobacco Embossing Calender Operator Required: No Allergies No Known Allergies Allergy (Verified 04/13/25 16:20) Do you need a note to return to daycare/school/sports/work: No HPI HPI Comments History of Present Illness Details This is a 44-year-old male with a past medical history of hyperlipidemia presenting for evaluation of a red lesion on his left posterior leg that he first noticed yesterday. Patient states that his circled the lesion yesterday and he comes today because the redness has expanded outside of her markings. Patient is unaware of any injury or trauma to his left lower extremity and denies having any fevers, chills or other exposures. [facility] Medical History Elevated aspartate aminotransferase level Hyperlipidemia Vertigo Surgical History H/O oral surgery Social History Alcohol intake: current Alcohol intake frequency: a few times a week Patient Tobacco Use Status: Never used Tobacco Review of Systems Const All systems reviewed & are unremarkable except as noted in HPI and below Reports as per HPI, Reports no additional complaints, Denies chills, Denies fatigue and Denies fever(s) Eyes Reports no additional complaints ENT Reports no additional complaints Card Reports no additional complaints Resp Reports no additional complaints GI Reports no additional complaints Musc Reports no additional complaints, Denies arthralgias, Denies joint swelling and Denies muscle weakness Skin/Breast Reports changing lesions and Reports erythema Neuro Reports no additional complaints Psych Reports no additional complaints Endo Reports no additional complaints and Denies fatigue Aller/Immun Reports no additional complaints Physical Exam Vital Signs: Last Vital Signs Temp 98.8 F 04/13/25 16:12 Pulse 85 04/13/25 16:12 BP 100/70 04/13/25 16:12 Pulse Ox 97 04/13/25 16:12 Oxygen Delivery Method Room Air 04/13/25 16:12 BMI result Body Mass Index 25.8 Const General: cooperative, healthy appearing, comfortable, no acute distress, well developed, alert and awake; No anxious, ill appearing or lethargic Nutritional Appearance: well nourished Orientation/consciousness: patient oriented x3 and No lethargic Limitations: no limitations Skin Other: There is a 2 cm erythematous lesion on the posterior left lower extremity distal to the left calf with surrounding macular erythema <3cm. Lesion is non.tender, fixed and not raised. Neuro General: patient oriented x3 Extrem Other: Patient ambulating independently, no left calf tenderness, passive ROM left knee and left ankle intact Psych Appearance: grossly normal Insight: Good insight present (Psych) Judgement: Good judgement present (Psych) Assessment & Plan Assessment & Plan (1) Cellulitis of left leg: Comment: Borders of the surrounding erythema are marked and patient will be discharged home with doxycycline. Code(s): L03.116 - Cellulitis of left lower limb Plan: Doxycycline b.i.d. x7 days, follow up with PCP for any worsening symptoms or return to the walk-in as needed. Medications: New doxycycline hyclate 100 mg PO BID 14 caps 0RF Discontinued cephalexin Discontinued Reason: Patient no longer taking 500 mg PO BID 14 caps 0RF Coding Level of Care Code Est Pt Level 3 (49552) Diagnoses Cellulitis of left leg L03.116 Time Spent (min) 20
== END 2025-04-13 16:46 | disposition home or self-care (01) ==
PROVIDERS: PCP Internal Medicine; Visit Provider Physician Assistant
DX: L03.116 Cellulitis of left lower limb (principal)

== ENCOUNTER 2025-04-16 15:02 | Outpatient (REF) | payer BC, SELFPAY ==
[2025-04-16 15:30] LABS: MANUAL DIFF FLAG NO
--- OUTSIDE RECORDS SUMMARY | 2025-04-16 15:33 | XMS_ITS | Patient Health Record ---
Author Organization Domingo Barr MD Address [address] [place] [phone] Care Team Providers Care Automatic Bow Maker Machine Tender Name Role Phone Momo Domingo Primary Care Provider [phone] Allergies No Known Allergies Results Component Value Reference Range Notes Potassium Reviewed date:04/27/2024 11:55:55 AM Interpretation: Performing Lab:[address] [phone] Notes/Report: Potassium 4.2 3.3-5.1 mmol/L Complete Blood Count Auto Di ff Reviewed date:12/07/2024 12:18:52 PM Interpretation: Performing Lab:[address] [phone] Notes/Report: White Blood Count 6.3 4.8-10.8 X10*3/uL [...] NRBC Abs Auto 0.000 0.0-0.012 X10*3/uL Comprehensive Ethel. Panel Fa st Reviewed date:12/07/2024 04:04:53 PM Interpretation: Performing Lab:[facility], [address] [place] [phone] Notes/Report: Sodium 139 135-145 mmol/L Potassium 3.9 [...] Panel Reviewed date:12/07/2024 04:05:39 PM Interpretation: Performing Lab:[address] [phone] Notes/Report: Triglycerides 52 <150 mg/dL Desirable Triglyceride: [...] (Free>4and<10) Reviewed date:12/07/2024 12:16:01 PM Interpretation: Performing Lab:[address] [phone] Notes/Report: PSA,Total (Free>4and<10) 0.40 0.00-4.00 ng/mL A [...] between 4.0 and 10.0 ng/mL. PSA methodology: [facility] i Chemiluminescent Microparticle Immunoassay (CMIA) UA ClnCatch+Micro w/rflx Cul t Reviewed date:12/07/2024 12:31:49 PM Interpretation: Performing Lab:[facility], [address] [place] [phone] Notes/Report: Urine, Clean Catch Color Urine Yellow Appearance Urine Clear PH 6.5 5.0-9.0 Glucose Urine UA Negative Negative mg/dL Urine Blood Negative Negative Specific [place] - Urine 1.025 1.005-1.025 Urine Protein Negative Neg-Trace mg/dL Urine Ketones Trace Negative mg/dL Nitrite Urine Negative Negative Leukocyte Esterase Urine Negative Negative RBC Urine 0-2 0-2 /HPF WBC Urine 0-5 0-5 /HPF Squamous Epithelial Cell Urine 0-2 0-2 /HPF Bacteria Urine None Seen None Seen Hyaline Casts Urine 0-2 0-2 /LPF Occult Blood, Stool, Guaiac Reviewed date:12/14/2024 03:33:28 PM Interpretation:Negative Performing Lab: Notes/Report: Negative Occult Blood, Stool, Guaiac Neg Complete Blood Count Auto Di ff Reviewed date:04/25/2024 10:25:21 AM Interpretation: Performing Lab:[facility], [address] [place] [phone] Notes/Report: White Blood Count 6.3 4.8-10.8 X10*3/uL Red Blood Count 4.72 4.60-5.80 X10*6/uL Hemoglobin 14.7 14.0-18.0 g/dl Hematocrit 41.6 42.0-52.0 % Mean Corpuscular Volume 88.1 80.0-98.0 fL Mean Corpuscular Hemoglobin 31.1 27.0-33.0 pg Mean Corpuscular HGB Conc 35.3 31.0-36.0 g/dl Red Cell Distribution Width 12.7 11.0-16.0 % Platelet Count 197 160-400 X10*3/uL Mean Platelet Volume 10.3 9.4-12.4 fL Neutrophils Percent Auto 65.6 45-73 % Imm Gran Pct Auto 0.3 0.0-0.4 % Lymphocytes Percent Auto 22.3 20-40 % Monocytes Percent Auto 8.2 2-11 % Eosinophils Percent Auto 3.0 0-4 % Basophils Percent Auto 0.6 0-2 % NRBC Pct Auto 0.0 0.0-0.2 /100WBC Neutrophils Absolute Auto 4.1 2.0-8.3 x10*3/u L Imm Gran Abs Auto 0.02 0.00-0.03 X10*3/uL Lymphocytes Absolute Auto 1.4 1.2-4.9 X10*3/u L Monocytes Absolute Auto 0.5 0.1-1.2 X10*3/uL Eosinophils Absolute Auto 0.2 0.0-0.4 X10*3/u L Basophils Absolute Auto 0.0 0.0-0.2 X10*3/uL NRBC Abs Auto 0.000 0.0-0.012 X10*3/uL Erythrocyte Sedimentation Ra te Reviewed date:04/24/2024 02:16:02 PM Interpretation: Performing Lab:[facility], [address] [place] [phone] Notes/Report: Erythrocyte Sedimentation Rate 7 0-15 MM/HR Patients with polycythemia and many hemoglobin abnormalities may have depressed sed rates whereas patients with anemia may have elevated sed rates. Comprehensive Met. Panel Reviewed date:04/25/2024 10:32:22 AM Interpretation: Performing Lab:[address] [phone] Notes/Report: Sodium 139 135-145 mmol/L Potassium 5.2 3.3-5.1 mmol/L Chloride 105 96-108 mmol/L Carbon Dioxide 28 22-29 mmol/L Anion Gap 11 12-20 Blood Urea Nitrogen 11 9-16 mg/dL Creatinine 1.03 0.5-1.4 mg/dL Estimated Glomerular Filt Rate > 60 NOTE: For -Brazilian individuals, multiply the result by 1.210. Chronic Kidney Disease: Estimated GFR < 60 mL/min/1.73m2 Severe Kidney Disease: Estimated GFR < 15 mL/min/1.73m2 Glucose Random 86 60-115 mg/dL Calcium 9.4 8.4-10.2 mg/dL Bilirubin Total 0.6 0.0-1.0 mg/dL Aspartate Amino Transferase 91 5-37 U/L Alanine Aminotransferase 46 0-40 U/L Total Protein 7.1 6.5-8.0 g/dL Albumin Level 4.1 3.5-5.0 g/dL Alkaline Phosphatase 71 39-117 U/L Reason For Referral No Information Medications Medication [...] EVERY DAY Orally Once a day Active Immunizations Vaccine Route Administration Date Status Comme nts DECLINED, FLU Unknown 07/24/2013 Administered Covid Vaccine Unknown 10/31/2020 Administered mODERNA [facility] Covid Vaccine Unknown 12/06/2020 Administered [facility]R [facility] SARS-COV-2 Moderna Unknown 10/31/2020 Administered SARS-COV-2 Moderna Unknown 12/06/2020 Administered SARS-COV-2 Moderna Unknown 07/21/2021 Administered Flu Vaccine Unknown 08/20/2014 Refused Flu Vaccine Unknown 10/22/2015 Refused Fluarix Quadrivalent Unknown 06/01/2017 Refused Fluarix Quadrivalent Unknown 07/04/2020 [address]ending Admi nistered by Dr Justin [facility] [address] Social History Tobacco Use: Social History Observation [...] Never (0 point) Points 1 Interpretation Negative Problems Problem Type SNOMED Code ICD Code Onset Dates Problem Status W/U Status Risk Notes Problem 86646104 Prostatism (N40.0) Active confirmed Problem Supraventricular premature beats (52725372) PAC (premature atrial contraction) (I49.1) Active confirmed Problem 830062856 History of hemor rhoids (Z87.19) Active confirmed Problem Abnormal liver function (14293464) Abnormal liver function (K76.89) Active confirmed Problem 012837319 Pure hypercholesterolemia (E78.00) Active confirmed Problem 71498528 Multilevel degenerative disc disease (M53.9) Active confirmed Vital Signs Blood pressure diastolic 60 mm Hg 04/16/2025 clara ght is down 2 pounds since 12-14-24 Height 67 in 04/16/2025 weight is down 2 pounds since 12-14-24 Blood pressure systolic 102 mm Hg 04/16/2025 weig ht is down 2 pounds since 12-14-24 Weight 172 lbs 04/16/2025 weight is down 2 pounds since 12-14-24 BMI 26.94 kg/m2 04/16/2025 weight is down 2 pounds since 12-14-24 Encounters Encounter Location Date Provider Diagnosis Domingo Barr MD [address] [place] [id number] 04/27/2024 Domingo Barr Hyperkalemia E87.5 Domingo Barr MD [address] [place] [id number] 12/07/2024 Domingo Barr Blood tests for rout ine general physical examination Z00.00 ; Pure hypercholesterolemia E78.00 and Prostatism N40.0 Domingo Barr MD [address] [place] [id number] 04/16/2025 Domingo Barr Cellulitis L03.90 Domingo Barr MD [address] [place] [id number] 05/05/2024 Domingo Barr Acute abdominal pain R10.9 Domingo Barr MD [address] [place] [id number] 12/14/2024 Domingo Barr Pure hypercholestero lemia E78.00 ; Annual physical exam Z00.00 ; Elevated LFTs R79.89 ; Prostatism N40.0 ; Colon cancer screening Z12.11 and Depression screening Z13.31 Domingo Barr MD [address] [place] [id number] 05/29/2024 Domingo Bombardier Pure hypercholestero lemia E78.00 Assessments Encounter Date Diagnosis (ICD Code) Assessment Notes Treatment Notes Treatment Clinical Notes Section Notes 04/27/2024 Hyperkalemia (ICD-10 - E87.5) 12/07/[address] ine general physical examination (ICD-10 - Z00.00) 04/16/2025 Cellulitis (ICD-10 - L03.90) 05/05/2024 Acute abdominal pain (ICD-10 - R10.9) has resolved, will observe and contnue to monitor 12/14/2024 Pure hypercholesterolemia (ICD-10 - E78.00) stable, will continue current regiment 12/14/2024 Annual physical exam (ICD-10 - Z00.00) labs reviewed and discussed with patient 05/29/2024 Pure hypercholesterolemia (ICD-10 - E78.00) 12/07/2024 Pure hypercholesterolemia (ICD-10 - E78.00) 12/14/2024 Elevated LFTs (ICD-1 0 - R79.89) doing well, will continue to monitor 12/07/2024 Prostatism (ICD-10 - N40.0) 12/14/2024 Prostatism (ICD-10 - N40.0) stable, will contibue to monitor 12/14/2024 Colon cancer screeni ng (ICD-10 - Z12.11) guaiac negative 12/14/2024 Depression screening (ICD-10 - Z13.31) negative screen 04/16/2025 Other ORDER PRINTED AND GIVEN TO KANNAN Plan Of Treatment Pending Test Test Name Order Date LIPID PANEL WITH REFLEX TO DIRECT LDL CT ABD & PELVIS WITH CONTRAST 10/12/2023 Complete Blood Count Auto Diff Blood Culture X2 04/16/2025 Lyme IgG/IgM w/reflex to WB 04/16/2025 Next Appt Details Provider Name:Domingo aguilar, 04/20/2025 12:45:00 PM, [address] [place] [address], [address] [place] [address], [phone], Provider Name:Domingo aguilar, 06/18/2025 07:00:00 AM, [address] [place] [address], [place] [address], [place], [place], [phone], Provider Name:Domingo Farmer ier, 12/10/2025 07:45:00 AM, [address], [address], [place], [place], [phone], Provider Name:Domingo Farmer ier, 12/17/2025 03:30:00 PM, [address], [address], [place], [place], [phone], Insurance Providers Payer Name Payer Address Payer Phone Subscriber Number Group Number Insured Name Patient Relationship to Insured Coverage Start Date Coverage End Date [employer] [facility] [address] [place], [place] [phone] [id number] Kannan Rodriguez Self - patient is the insured Medical (General) History Medical History History ICD Code 01/20/2013 - rectal bleeding - get colonos copy in 10 years
--- OUTSIDE RECORDS SUMMARY | 2025-04-16 15:33 | XMS_ITS | Patient Health Record ---
Author Organization [facility] Address [address] [place] [address] Care Team Providers Care Brim Greaser Operator Name Role Phone Domingo Barr MD Primary Care Provider Mika Fisher Unavailable [phone] Reason For Referral No Information Social History [...] Date Coverage End Date [employer] [address] [place] [address] [id number] Kannan Rodriguez Self - patient is the insured Medical (General) History Medical History History ICD Code Chicken pox
--- OUTSIDE RECORDS SUMMARY | 2025-04-16 15:33 | XMS_ITS | Patient Health Record ---
Author Organization [facility] Address [address] [place] [address] Care Team Providers Care Elementary [employer] Librarian Name Role Phone Momo PELAYO, Domingo Primary Care Provider James Rivers Unavailable [phone] Allergies No Known Allergies Reason For Referral [...] Status W/U Status Risk Notes Problem Dysphagia (R13.10) Active confirmed Problem Elevated liver enzymes level (594137638) Elevated liver function tests (R79.89) Active confirmed Problem 265841711 Fatty liver (K76.0) Active confirmed Plan Of Treatment Pending Test Test Name Order Date LIVER PROFILE 07/21/2022 LIVER PROFILE 03/25/2022 LDH 07/21/2022 LDH 03/25/2022 CPK 07/21/2022 CPK 03/25/2022 CBC w DIFF 03/25/2022 PROTHROMBIN TIME (PT, INR) 03/25/2022 HEPATITIS B, C PROFILE 03/25/2022 [id number] (A1A) 03/25/2022 ALDOLASE 07/21/2022 US ABD 03/25/2022 FLUOR. ANTINUCLEAR AB SCREEN (SAULO) 02/2022 Future Test Test Name Order Date UPPER GI ENDOSCOPY BALLOOON DILATION OF ESOPH 07/21/2022 Insurance Providers Payer Name Payer Address Payer Phone Subscriber Number Group Number Insured Name Patient Relationship to Insured Coverage Start Date Coverage End Date [facility] [address] [place] [phone] [id number] SHEYLA GARCIA Self - patient is the insured Medical (General) History Medical History History ICD Code Denies VA,DM,CVA,Lung disease,renal dise ase Hyperlipidemia Long-standing elevation of [...]
[2025-04-16 16:22] LABS: Hematocrit 41.6 % (42.0-52.0); Hemoglobin 14.1 g/dl (14.0-18.0); Imm Gran Abs Auto 0.01 X10*3/uL (0.00-0.03); Imm Gran Pct Auto 0.2 % (0.0-0.4); Lymphocytes Absolute Auto 1.2 X10*3/uL (1.2-4.9); Mean Corpuscular HGB Conc 33.9 g/dl (31.0-36.0); Mean Corpuscular Hemoglobin 29.7 pg (27.0-33.0); Mean Corpuscular Volume 87.8 fL (80.0-98.0); NRBC Abs Auto 0.000 X10*3/uL (0.0-0.012); NRBC Pct Auto 0.0 /100WBC (0.0-0.2); Platelet Count 172 X10*3/uL (160-400); Red Blood Count 4.74 X10*6/uL (4.60-5.80); White Blood Count 5.7 X10*3/uL (4.8-10.8)
[2025-04-17 23:23] LABS: Lyme Abs Screen <0.90 index
== END 2025-04-16 15:03 | disposition home or self-care (01) ==
LOC: HO.LAB 15:02
PROVIDERS: PCP Internal Medicine; Visit Provider Internal Medicine
DX: L03.90 Cellulitis, unspecified (principal)
CPT/HCPCS: 36415; 85025; 86617; 86618; 87040

== ENCOUNTER 2025-06-18 10:43 | Outpatient (REF) | payer BC, SELFPAY ==
--- OUTSIDE RECORDS SUMMARY | 2024-12-07 04:00 | XMS_ITS ---
Author Organization Domingo Barr MD Address [address] [place] [phone] Care Team Providers Care Political Science Instructor Name Role Phone Momo Domingo Primary Care Provider Results Component Value Reference Range Notes Complete Blood Count Auto Di ff Reviewed date:12/07/2024 12:18:52 PM Interpretation: Performing Lab:[facility], [address] [place] [id number] Notes/Report: White Blood Count 6.3 4.8-10.8 X10*3/uL Red Blood Count 4.93 4.60-5.80 X10*6/uL Hemoglobin 14.8 14.0-18.0 g/dl Hematocrit 42.7 42.0-52.0 % Mean Corpuscular Volume 86.6 80.0-98.0 fL Mean Corpuscular Hemoglobin 30.0 27.0-33.0 pg Mean Corpuscular HGB Conc 34.7 31.0-36.0 g/dl Red Cell Distribution Width 13.2 11.0-16.0 % Platelet Count 196 160-400 X10*3/uL Mean Platelet Volume 10.8 9.4-12.4 fL Neutrophils Percent Auto 58.0 45-73 % Imm Gran Pct Auto 0.3 0.0-0.4 % Lymphocytes Percent Auto 28.1 20-40 % Monocytes Percent Auto 8.2 2-11 % Eosinophils Percent Auto 4.1 0-4 % Basophils Percent Auto 1.3 0-2 % NRBC Pct Auto 0.0 0.0-0.2 /100WBC Neutrophils Absolute Auto 3.7 2.0-8.3 x10*3/u L Imm Gran Abs Auto 0.02 0.00-0.03 X10*3/uL Lymphocytes Absolute Auto 1.8 1.2-4.9 X10*3/u L Monocytes Absolute Auto 0.5 0.1-1.2 X10*3/uL Eosinophils Absolute Auto 0.3 0.0-0.4 X10*3/u L Basophils Absolute Auto 0.1 0.0-0.2 X10*3/uL NRBC Abs Auto 0.000 0.0-0.012 X10*3/uL Comprehensive [place]. Panel Fa st Reviewed date:12/07/2024 04:04:53 PM Interpretation: Performing Lab:[facility], [address] [place] [phone] Notes/Report: Sodium 139 135-145 mmol/L Potassium 3.9 3.3-5.1 mmol/L Chloride 107 96-108 mmol/L Carbon Dioxide 27 22-29 mmol/L Anion Gap 9 12-20 Blood Urea Nitrogen 14 9-16 mg/dL Creatinine 0.93 0.5-1.4 mg/dL Estimated Glomerular Filt Rate > 60 Chronic Kidney Disease: Estimated GFR < 60 mL/min/1.73m2 Severe Kidney Disease: Estimated GFR < 15 mL/min/1.73m2 Glucose Fasting 85 60-99 mg/dL Calcium 9.0 8.4-10.2 mg/dL Bilirubin Total 0.6 0.0-1.0 mg/dL Aspartate Amino Transferase 132 5-37 U/L Alanine Aminotransferase 66 0-40 U/L Total Protein 7.0 6.5-8.0 g/dL Albumin Level 3.9 3.5-5.0 g/dL Alkaline Phosphatase 61 39-117 U/L Lipid Panel Reviewed date:12/07/2024 04:05:39 PM Interpretation: Performing Lab:[address] [phone] Notes/Report: Triglycerides 52 <150 mg/dL Desirable Triglyceride: less than 150 mg/dL Borderline High Triglyceride 150-199 mg/dL High Triglyceride: 200-499 mg/dL Very High Triglyceride: greater than or equal to 5OO mg/dL Cholesterol 183 <200 mg/dL Desirable Cholesterol: less than 200 mg/dL Borderline High Cholesterol: 200-239 mg/dL High Cholesterol: greater than 239 mg/dL LDL Cholesterol Calculated 105 <100 mg/dL Desirable LDL: less than 100 mg/dL Near Optimal/Above Optimal LDL: 110-129 mg/dL Borderline High LDL: 130-159 mg/dL High LDL: 160-189 mg/dL Very High LDL: greater than or equal to 190 mg/dL HDL Cholesterol 68 >40 mg/dL Desirable HDL: greater than 40 mg/dL Note: This HDL assay may give artificially low results in patients with liver disease. PSA,Total (Free>4and<10) Reviewed date:12/07/2024 12:16:01 PM Interpretation: Performing Lab:[address] [phone] Notes/Report: PSA,Total (Free>4and<10) 0.40 0.00-4.00 ng/mL A Free PSA was not performed: The percentage of Free PSA can be used to enhance the differentiation of prostate cancer from benign prostatic disease in subjects whose PSA levels are between 4.0 and 10.0 ng/mL. For subjects whose PSA levels are below 4.0 or above 10.0 ng/mL, the risk of prostate cancer is determined on the basis of the PSA alone. Therefore the % Free PSA is recommended only for those subjects whose PSA levels are between 4.0 and 10.0 ng/mL. PSA methodology: Malagon Alinity i Chemiluminescent Microparticle Immunoassay (CMIA) UA ClnCatch+Micro w/rflx Cul t Reviewed date:12/07/2024 12:31:49 PM Interpretation: Performing Lab:[address] [phone] Notes/Report: Urine, Clean Catch Color Urine Yellow Appearance Urine Clear PH 6.5 5.0-9.0 Glucose Urine UA Negative Negative mg/dL Urine Blood Negative Negative Specific [place] - Urine 1.025 1.005-1.025 Urine Protein Negative Neg-Trace mg/dL Urine Ketones Trace Negative mg/dL Nitrite Urine Negative Negative Leukocyte Esterase Urine Negative Negative RBC Urine 0-2 0-2 /HPF WBC Urine 0-5 0-5 /HPF Squamous Epithelial Cell Urine 0-2 0-2 /HPF Bacteria Urine None Seen None Seen Hyaline Casts Urine 0-2 0-2 /LPF REASON FOR VISIT FASTING LABS Encounters Encounter Location Date Provider Diagnosis Domingo Barr MD [address] [place] [phone] 12/07/2024 Domingo Barr Blood tests for rout ine general physical examination Z00.00 ; Pure hypercholesterolemia E78.00 and Prostatism N40.0 Assessments Encounter Date Diagnosis (ICD Code) Assessment Notes Treatment Notes Treatment Clinical Notes Section Notes 12/07/2024 Blood tests for rout ine general physical examination (ICD-10 - Z00.00) 12/07/2024 Pure hypercholesterolemia (ICD-10 - E78.00) 12/07/2024 Prostatism (ICD-10 - N40.0) Plan Of Treatment Next Appt Details Provider Name:Domingo aguilar, 12/10/2025 07:45:00 AM, [address] [place] [address], [address], [phone], Provider Name:Domingo aguilar, 12/17/2025 03:30:00 PM, [address] [place] [address], [address], [phone], Progress Notes * Kannan GARCIADOB:1980 (44 yo M)Acc No.[id number]:12/07/2024 Progress Note Patient: Kannan DUTTON Provider: Taurus Barr MD :1980 A ge:44 Y S ex:Male Date:12/07/2024 [id number] Subjective: * Chief Complaints: * 1 . FASTING LABS. * Medical History: Objective: * Vitals: Assessment: * Assessment: 1. B lood tests for routine general physical examination - Z00.00 (Primary) 2 .?Pure hypercholesterolemia - E78.00 3 . P rostatism - N40.0 ? Plan: * Treatment: 2. P ure hypercholesterolemia L AB: Complete Blood Count Auto Diff (Collection Date & Time - 12/07/2024 08:00 AM) L AB: Comprehensive [place]. Panel Fast (Collection Date & Time - 12/07/2024 08:00 AM) L AB: Lipid Panel (Collection Date & Time - 12/07/2024 08:00 AM) L AB: PSA,Total (Free>4and<10) (Collection Date & Time - 12/07/2024 08:00 AM) L AB: UA ClnCatch+Micro w/rflx Cult (Collection Date & Time - 12/07/2024 08:00 AM) 3. P rostatism L AB: Complete Blood Count Auto Diff (Collection Date & Time - 12/07/2024 08:00 AM) L AB: Comprehensive [place]. Panel Fast (Collection Date & Time - 12/07/2024 08:00 AM) L AB: Lipid Panel (Collection Date & Time - 12/07/2024 08:00 AM) L AB: PSA,Total (Free>4and<10) (Collection Date & Time - 12/07/2024 08:00 AM) L AB: UA ClnCatch+Micro w/rflx Cult (Collection Date & Time - 12/07/2024 08:00 AM) * Procedure Codes: 3 6415 VENIPUNCT, ROUTINE* * * The named appointment provid er may or may not be the originator of this progress note, and it is not deemed complete until electronically signed by the appointment provider. Sign off status: Pending * Provider: Taurus Barr MD Date: 0 12/07/2024 Generated for Mona varghese/Chuy/Jesusitting on: 0 06/18/2025 12:13 PM EDT
--- OUTSIDE RECORDS SUMMARY | 2024-12-14 10:30 | XMS_ITS ---
Author Organization Domingo Barr MD Address [address] [place] [id number] Care Team Providers Care Director Financial Analysis Name Role Phone Domingo Barr Primary Care Provider Allergies No Known Allergies Results Component Value Reference Range Notes Occult Blood, Stool, Guaiac Reviewed date:12/14/2024 03:33:28 PM Interpretation:Negative Performing Lab: Notes/Report: Negative Occult Blood, Stool, Guaiac Neg REASON FOR VISIT ANNUAL EXAM Medications Medication SIG (Take, Route, Frequency, Duration) Notes Start Date End Date Status Atorvastatin Calcium 10 MG TAKE 1 TABLET BY MOUTH EVERY DAY Orally Once a day Active Tamsulosin HCl 0.4 MG TAKE 1 CAPSULE BY MOUTH DAILY Active Lipitor 10 MG 1 tablet Orally Once a day for 30 Not-Taking Social History Tobacco Use: Social History Observation Description Date Details (start date - stop date) Never Smoker NA - NA Tobacco Use/Smoking Question Answer Notes Patient is a nonsmoker Additional Findings: Tobacco Non-User Cu rrent non-smoker, currently using no form of tobacco Alcohol Screen Question Answer Notes Did you have a drink contain ing alcohol in the past year? Yes How often did you have a dri nk containing alcohol in the past year? Monthly or less (1 point) How many drinks did you have on a typical day when you were drinking in the past year? 1 or 2 drinks (0 point) How often did you have 6 or more drinks on one occasion in the past year? Never (0 point) Points 1 Interpretation Negative Vital Signs Blood pressure systolic 102 mm Hg 12/15/19 25 Blood pressure diastolic 60 mm Hg 025 Height 67 in 12/14/2024 Weight 174 lbs 12/14/2024 BMI 27.25 kg/m2 12/14/2024 Encounters Encounter Location Date Provider Diagnosis Domingo Barr MD [address] [place] [address] [place] [phone] 12/14/2024 Domingo Barr Pure hypercholestero lemia E78.00 ; Annual physical exam Z00.00 ; Elevated LFTs R79.89 ; Prostatism N40.0 ; Colon cancer screening Z12.11 and Depression screening Z13.31 Assessments Encounter Date Diagnosis (ICD Code) Assessment Notes Treatment Notes Treatment Clinical Notes Section Notes 12/14/2024 Pure hypercholesterolemia (ICD-10 - E78.00) stable, will continue current regiment 12/14/2024 Annual physical exam (ICD-10 - Z00.00) labs reviewed and discussed with patient 12/14/2024 Elevated LFTs (ICD-1 0 - R79.89) doing well, will continue to monitor 12/14/2024 Prostatism (ICD-10 - N40.0) stable, will contibue to monitor 12/14/2024 Colon cancer screeni ng (ICD-10 - Z12.11) guaiac negative 12/14/2024 Depression screening (ICD-10 - Z13.31) negative screen Plan Of Treatment Medication Medication Name Sig Start Date Stop Date Notes Atorvastatin Calcium 10 MG TAKE 1 TABLET BY MOUTH EVERY DAY Orally Once a day Tamsulosin HCl 0.4 MG TAKE 1 CAPSULE BY MOUTH DAILY Treatment Notes Assessment Notes Pure hypercholesterolemia stable, will c ontinue current regiment Annual physical exam labs reviewed and d iscussed with patient Elevated LFTs doing well, will con tinue to monitor Prostatism stable, will contibu e to monitor Colon cancer screening guaiac negative Depression screening negative screen Next Appt Details Provider Name:Domingo Farmer ier, 12/10/2025 07:45:00 AM, [address], [address], [place], [place], [phone], Provider Name:Domingo Farmer ier, 12/17/2025 03:30:00 PM, [address] [facility], [address], [place], [place], [phone], Progress Notes * Alejandra GARCIAmanishaDOB:1980 (44 yo M)Acc No.[id number]:12/14/2024 Progress Notes Patient: Kannan DUTTON Provider: Taurus Barr MD :1980 A ge:44 Y S ex:Male Date:12/14/2024 Address:[address] [place], [place] [id number] Subjective: * Chief Complaints: * A NNUAL EXAM * HPI: D epression Screening: PHQ-9 L ittle interest or pleasure in doing things N ot at all, F eeling down, depressed, or hopeless N ot at all, T rouble falling or staying asleep, or sleeping too much N ot at all, F eeling tired or having little energy N ot at all, P oor appetite or overeating N ot at all, F eeling bad about yourself or that you are a failure, or have let yourself or your family down N ot at all, T rouble concentrating on things, such as reading the newspaper or watching television N ot at all, M oving or speaking so slowly that other people could have noticed; or the opposite, being so fidgety or restless that you have been moving around a lot more than usual N ot at all, T houghts that you would be better off or of hurting yourself in some way N ot at all, T otal Score 0 . I nterpretation and Intervention D epression Screening Findings N egative, F ollow-Up for Depression : review of PHQ-9 found negative result, no follow-up needed. C ommunication Needs: Communication Needs D oes the patient have a hearing impairment N o, D oes the patient have a vision impairment? Y es, I f yes, what is the vision impairment? G lasses, D oes the patient have a cognition impairment? N o. S YAO Questions: SDOH Questions I n the past year have you been worried about losing housing? N o, I n the past year have you or any family members you live with been unable to get any of the following when it was really needed? Check all that apply: N one. S ymptom(s): patient is a 44 yo male here for annual visit with review of recent labs and follow up of chronic issues. * ROS: G eneral/Constitutional: Change in appetite d enies. C hills d enies. F ever d enies. O phthalmologic: Blurred vision d enies. D ischarge d enies. P ain d enies. E NT: Decreased hearing d enies. S ore throat d enies.?Swollen glands d enies. E ndocrine: Cold intolerance d enies. E xcessive thirst d enies. H eat intolerance d enies. W eight loss d enies. R espiratory: Cough d enies. S hortness of breath at rest d enies. S hortness of breath with exertion d enies. W heezing d enies. C ardiovascular: Chest pain at rest d enies. C hest pain with exertion?denies. I rregular heartbeat d enies. S hortness of breath d enies. ? G astrointestinal: Abdominal pain d enies. C hange in bowel habits d enies. D iarrhea d enies. N ausea d enies. R ectal bleeding d enies. V omiting d enies . G enitourinary: Blood in urine d enies. D ifficulty urinating d enies. F requent urination d enies. M usculoskeletal: Painful joints d enies. W eakness d enies. ? S kin: Dry skin d enies. I tching d enies. D enies?Mole(s), changes in moles, new moles or any lesions of concern. D enies P hotosensitivity. R edis d enies. N eurologic: Dizziness d enies. F ainting d enies. H eadache?denies. * Medical History: * Surgical History: * Hospitalization/Major Diagno stic Procedure: * Family History: F ather: alive 62 yrs. M other: alive 60 yrs. 2 brother(s) . . Mother- Healthy Father- Healthy, Denies mental health/substance abuse family history, Denies mental health/substance abuse family history. * Social History: T obacco Use: T obacco Use/Smoking P atient is a n onsmoker, A dditional Findings: Tobacco Non-User C urrent non-smoker, currently using no form of tobacco. D rugs/Alcohol: A lcohol Screen D id you have a drink containing alcohol in the past year? Y es, H ow often did you have a drink containing alcohol in the past year? M onthly or less (1 point), H ow many drinks did you have on a typical day when you were drinking in the past year? 1 or 2 drinks (0 point), H ow often did you have 6 or more drinks on one occasion in the past year? N ever (0 point), P oints 1 , I nterpretation N egative. M iscellaneous: C affeine: no. Children: no. Community involvements: no. Exercise: yes, Yoga. Housing: owning. Living with: spouse. Marital status: . Occupation: works full- time. Pets: none. Travel outside of the [place]: yes, Jennifer. * Medications: T akingAtorvastatin Calcium 10 MG Tablet TAKE 1 TABLET BY MOUTH EVERY DAY Orally Once a day Tamsulosin HCl 0.4 MG Capsule TAKE 1 CAPSULE BY MOUTH DAILY Taking Atorvastatin Calcium 10 MG Tablet TAKE 1 TABLET BY MOUTH EVERY DAY Orally Once a day Taking Tamsulosin HCl 0.4 MG Capsule TAKE 1 CAPSULE BY MOUTH DAILY Not- Taking/PRNLipitor 10 MG Tablet 1 tablet Orally Once a day Medication List reviewed and reconciled with the patientNot-Taking/PRN Lipitor 10 MG Tablet 1 tablet Orally Once a day Medication List reviewed and reconciled with the patient * Allergies: N .K.D.A.yes[Allergies Verified] Objective: * Vitals: H t: 67, Wt: 174, BMI:27.25, BP:102/60, Wt-k.93. * P ast Orders: L ab:Complete Blood Count Auto Diff (Order Date - 12/07/2024) (Collection Date & Time - 12/07/2024 08:00 AM) Value Reference Range White Blood Count 6.3 4.8-10.8 - X10*3/uL Red Blood Count 4.93 4.60-5.80 - X10*6/uL Hemoglobin 14.8 14.0-18.0 - g/dl Hematocrit 42.7 42.0-52.0 - % Mean Corpuscular Volume 86.6 80.0-98.0 - fL Mean Corpuscular Hemoglobin 30.0 27.0-33.0 - pg Mean Corpuscular HGB Conc 34.7 31.0-36.0 - g/ dl Red Cell Distribution Width 13.2 11.0-16.0 - % Platelet Count 196 160-400 - X10*3/uL Mean Platelet Volume 10.8 9.4-12.4 - fL Neutrophils Percent Auto 58.0 45-73 - % Imm Gran Pct Auto 0.3 0.0-0.4 - % Lymphocytes Percent Auto 28.1 20-40 - % Monocytes Percent Auto 8.2 2-11 - % Eosinophils Percent Auto 4.1 H 0-4 - % Basophils Percent Auto 1.3 0-2 - % NRBC Pct Auto 0.0 0.0-0.2 - /100WBC Neutrophils Absolute Auto 3.7 2.0-8.3 - x10* 3/uL Imm Gran Abs Auto 0.02 0.00-0.03 - X10*3/uL Lymphocytes Absolute Auto 1.8 1.2-4.9 - X10* 3/uL Monocytes Absolute Auto 0.5 0.1-1.2 - X10*3/ uL Eosinophils Absolute Auto 0.3 0.0-0.4 - X10* 3/uL Basophils Absolute Auto 0.1 0.0-0.2 - X10*3/ uL NRBC Abs Auto 0.000 0.0-0.012 - X10*3/uL L ab:PSA,Total (Free>4and<10) (Order Date - 12/07/2024) (Collection Date & Time - 12/07/2024 08:00 AM) Value Reference Range PSA,Total (Free>4and<10) 0.40 0.00-4.00 - ng/ mL L ab:UA ClnCatch+Micro w/rflx Cult (Order Date - 12/07/2024) (Collection Date & Time - 12/07/2024 08:00 AM) Value Reference Range Color Urine Yellow - Appearance Urine Clear - PH 6.5 5.0-9.0 - Glucose Urine UA Negative Negative - mg/dL Urine Blood Negative Negative - Specific [place] - Urine 1.025 1.005-1.025 - Urine Protein Negative Neg-Trace - mg/dL Urine Ketones Trace Negative - mg/dL Nitrite Urine Negative Negative - Leukocyte Esterase Urine Negative Negative - RBC Urine 0-2 0-2 - /HPF WBC Urine 0-5 0-5 - /HPF Squamous Epithelial Cell Urine 0-2 0-2 - /HP F Bacteria Urine None Seen None Seen - Hyaline Casts Urine 0-2 0-2 - /LPF L ab:Comprehensive [place]. Panel Fast (Order Date - 12/07/2024) (Collection Date & Time - 12/07/2024 08:00 AM) Value Reference Range Sodium 139 135-145 - mmol/L Bilirubin Total 0.6 0.0-1.0 - mg/dL Aspartate Amino Transferase 132 H 5-37 - U/L Alanine Aminotransferase 66 H 0-40 - U/L Total Protein 7.0 6.5-8.0 - g/dL Albumin Level 3.9 3.5-5.0 - g/dL Alkaline Phosphatase 61 39-117 - U/L Potassium 3.9 3.3-5.1 - mmol/L Chloride 107 96-108 - mmol/L Carbon Dioxide 27 22-29 - mmol/L Anion Gap 9 L 12-20 - Blood Urea Nitrogen 14 9-16 - mg/dL Creatinine 0.93 0.5-1.4 - mg/dL Estimated Glomerular Filt Rate > 60 - Glucose Fasting 85 60-99 - mg/dL Calcium 9.0 8.4-10.2 - mg/dL L ab:Lipid Panel (Order Date - 12/07/2024) (Collection Date & Time - 12/07/2024 08:00 AM) Value Reference Range Triglycerides 52 <150 - mg/dL Cholesterol 183 <200 - mg/dL LDL Cholesterol Calculated 105 H <100 - mg/dL HDL Cholesterol 68 >40 - mg/dL * Examination: G eneral Examination: GENERAL APPEARANCE: w ell developed, well nourished, in no acute distress. HEAD: n ormocephalic, atraumatic. EYES: p upils equal, round, reactive to light and accommodation, sclera non-icteric. EARS: n ormal. ORAL CAVITY: m ucosa moist. THROAT: c lear. NECK/THYROID: n zee supple, full range of motion, no cervical lymphadenopathy, no bruits. SKIN: w arm and dry, no suspicious lesions. HEART: r egular rate and rhythm, S1, S2 normal, no murmurs.? LUNGS: c lear to auscultation bilaterally. ABDOMEN: s oft, nontender, nondistended, bowel sounds present, normal, no organomegaly , no masses palpable. RECTAL EXAM: n ormal tone, no external hemorrhoids, no masses palpable, prostate normal, stool guaiac negative. MALE GENITOURINARY: c ircumcised, no testicular mass, no penile lesions or discharge, testes descended bilaterally. EXTREMITIES: n o clubbing, cyanosis, or edema. NEUROLOGIC: n onfocal, motor strength normal upper and lower extremities, sensory exam intact. Assessment: * Assessment: 1. A nnual physical exam - Z00.00 (Primary) 2 . P ure hypercholesterolemia - E78.00 3 . E levated LFTs - R79.89 4 . P rostatism - N40.0? 5. C olon cancer screening - Z12.11 6 . D epression screening - Z13.31 Plan: * Treatment: 2. P ure hypercholesterolemia Continue Atorvastatin Calcium Tablet, 10 MG, TAKE 1 TABLET BY MOUTH EVERY DAY, Orally, Once a day.? Notes: stable, will continue current regiment 3. E levated LFTs L AB: Liver Panel (Ordered for 06/16/2025) L AB: Lipid Panel (Ordered for 06/16/2025) Notes: doing well, will continue to monitor 4. P rostatism Continue Tamsulosin HCl Capsule, 0.4 MG, TAKE 1 CAPSULE BY MOUTH DAILY. Notes: stable, will contibue to monitor 5. C olon cancer screening L AB: Occult Blood, Stool, Guaiac (Collection Date & Time - 12/14/2024) N egative Value Reference Range O ccult Blood, Stool, Guaiac Neg Notes: guaiac negative??6.?Depression screening? Notes: negative screen?? * Procedure Codes: 8 2270 TEST FOR BLOOD, FECES * * Sign off status: Completed true * Provider: Taurus Barr MD Date: 0 12/14/2024 Generated for Mona varghese/Chuy/Jesusitting on: 0 06/18/2025 12:12 PM EDT History and Physical Notes * HPI (History of Present Illness) Category Sub-Category Detail Notes Category Not es Symptom(s) patient is a 44 yo male here for annual visit with review of recent labs and follow up of chronic issues. Depression Screening PHQ-9 Little inte rest or pleasure in doing things: Not at all Feeling down, depressed, or hopeless: No t at all Trouble falling or staying asleep, or sl eeping too much: Not at all Feeling tired or having little energy: N ot at all Poor appetite or overeating: Not at all Feeling bad about yourself o r that you are a failure, or have let yourself or your family down: Not at all Trouble concentrating on thi ngs, such as reading the newspaper or watching television: Not at all Moving or speaking so slowly that other people could have noticed; or the opposite, being so fidgety or restless that you have been moving around a lot more than usual: Not at all Thoughts that you would be b thomas off or of hurting yourself in some way: Not at all Total Score: 0 Interpretation and Intervention Depression Eliza ardno Findings: Negative Follow-Up for Depression: : review of PH Q-9 found negative result, no follow-up needed SDOH Questions SDOH Questions In the past year have you been worried about losing housing?: No In the past year have you or any family members you live with been unable to get any of the following when it was really needed? Check all that apply:: None Communication Needs Communication Needs Does the patient have a hearing impairment: No Does the patient have a vision impairmen t?: Yes If yes, what is the vision impairment?: Glasses Does the patient have a cognition impair ment?: No Examination Category Sub-Category Detail Notes Category Not es General Examination GENERAL APPEARANCE: well dev eloped, well nourished, in no acute distress HEAD: normocephalic, atrau matic EYES: pupils equal, round, reactive to light and accommodation, sclera non-icteric EARS: normal THROAT: clear NECK/THYROID: neck supple, full ra nge of motion, no cervical lymphadenopathy, no bruits HEART: regular rate and rhy thm, S1, S2 normal, no murmurs LUNGS: clear to auscultatio n bilaterally ABDOMEN: soft, nontender, non distended, bowel sounds present, normal, no organomegaly , no masses palpable NEUROLOGIC: nonfocal, motor stre ngth normal upper and lower extremities, sensory exam intact SKIN: warm and dry, no sintia picious lesions EXTREMITIES: no clubbing, cyanosi s, or edema MALE GENITOURINARY: circumcised, no test icular mass, no penile lesions or discharge, testes descended bilaterally RECTAL EXAM: normal tone, no exte rnal hemorrhoids, no masses palpable, prostate normal, stool guaiac negative ORAL CAVITY: mucosa moist
--- OUTSIDE RECORDS SUMMARY | 2025-04-16 10:30 | XMS_ITS ---
Author Organization Domingo Barr MD Address [address] [place] [phone] Care Team Providers Care Actuarial Mathematician Name Role Phone Momo Domingo Primary Care Provider Allergies No Known Allergies Results Component Value Reference Range Notes Complete Blood Count Auto Di ff Reviewed date:04/16/2025 05:36:56 PM Interpretation: Performing Lab:[facility], [address] [place] [phone] Notes/Report: White Blood Count 5.7 4.8-10.8 X10*3/uL Red Blood Count 4.74 4.60-5.80 X10*6/uL Hemoglobin 14.1 14.0-18.0 g/dl Hematocrit 41.6 42.0-52.0 % Mean Corpuscular Volume 87.8 80.0-98.0 fL Mean Corpuscular Hemoglobin 29.7 27.0-33.0 pg Mean Corpuscular HGB Conc 33.9 31.0-36.0 g/dl Red Cell Distribution Width 13.2 11.0-16.0 % Platelet Count 172 160-400 X10*3/uL Mean Platelet Volume 10.7 9.4-12.4 fL Neutrophils Percent Auto 61.2 45-73 % Imm Gran Pct Auto 0.2 0.0-0.4 % Lymphocytes Percent Auto 21.5 20-40 % Monocytes Percent Auto 12.4 2-11 % Eosinophils Percent Auto 3.8 0-4 % Basophils Percent Auto 0.9 0-2 % NRBC Pct Auto 0.0 0.0-0.2 /100WBC Neutrophils Absolute Auto 3.5 2.0-8.3 x10*3/u L Imm Gran Abs Auto 0.01 0.00-0.03 X10*3/uL Lymphocytes Absolute Auto 1.2 1.2-4.9 X10*3/u L Monocytes Absolute Auto 0.7 0.1-1.2 X10*3/uL Eosinophils Absolute Auto 0.2 0.0-0.4 X10*3/u L Basophils Absolute Auto 0.1 0.0-0.2 X10*3/uL NRBC Abs Auto 0.000 0.0-0.012 X10*3/uL Lyme IgG/IgM w/reflex to WB Reviewed date:04/19/2025 02:49:32 PM Interpretation: Performing Lab:[facility], [address] [place] [phone] Notes/Report: Lyme Abs Screen <0.90 Index Interpretation ----- < 0.90 Negative 0.90-1.09 Equivocal > 1.09 Positive As recommended by the Food and Drug Administration (FDA), all samples with positive or equivocal results in a Borrelia burgdorferi antibody screen will be tested using a blot method. Positive or equivocal screening test results should not be interpreted as truly positive until verified as such using a supplemental assay (e.g., B. burgdorferi blot). The screening test and/or blot for B. burgdorferi antibodies may be falsely negative in early stages of Lyme disease, including the period when erythema migrans is apparent. THIS TEST WAS PERFORMED AT: [facility] [address] [place] [phone] KATE PARKER MD Lyme Blot TNP REASON FOR VISIT ? left lower leg cellulitis, Went to Urgent Care in [place] 04-13-25 was put on Doxycycline 100mg Medications Medication SIG (Take, Route, Frequency, Duration) Notes Start Date End Date Status Sulfamethoxazole-Trimetho prim 800-160 MG 1 tablet Orally twice a day for 10 days 04/16/2025 Active Tamsulosin HCl 0.4 MG TAKE 1 CAPSULE BY MOUTH DAILY Active Lipitor 10 MG 1 tablet Orally Once a day for 30 Not-Taking Doxycycline Hyclate 100 MG 1 capsule Orally Once a day Active Atorvastatin Calcium 10 MG TAKE 1 TABLET BY MOUTH EVERY DAY Orally Once a day Active Vital Signs Blood pressure systolic 102 mm Hg 04/16/20 25 Blood pressure diastolic 60 mm Hg 025 Height 67 in 04/16/2025 Weight 172 lbs 04/16/2025 BMI 26.94 kg/m2 04/16/2025 weight is down 2 pounds [facility] latisha 12-14-24 Encounters Encounter Location Date Provider Diagnosis Domingo Barr MD [address] [place] [address] [place] [phone] 04/16/2025 Domingo Barr Cellulitis L03.90 Assessments Encounter Date Diagnosis (ICD Code) Assessment Notes Treatment Notes Treatment Clinical Notes Section Notes 04/16/2025 Cellulitis (ICD-10 - L03.90) pending diagnostic labs , patient verbalized understanding of medication and directions for use 04/16/2025 Other ORDER PRINTED A ND GIVEN TO KANNAN Plan Of Treatment Medication Medication Name Sig Start Date Stop Date Notes Sulfamethoxazole-Trimethopri m 800-160 MG 1 tablet Orally twice a day for 10 days 04/16/2025 Treatment Notes Assessment Notes Cellulitis pending diagnostic l abs , patient verbalized understanding of medication and directions for use Other ORDER PRINTED AND GI DAREK TO KANNAN Pending Test Test Name Order Date Blood Culture X2 04/16/2025 Next Appt Details Follow Up: wednesday, Reason: Provider Name:Domingo aguilar, 12/10/2025 07:45:00 AM, [address] [place] [address], [place] [address], [place], [place], [phone], Provider Name:Domingo aguilar, 12/17/2025 03:30:00 PM, [address] [place] [address], [address], [place], [place], [phone], Progress Notes * Kannan GARCIADOB:1980 (44 yo M)Acc No.[id number]:04/16/2025 Progress Notes Patient: Kannan DUTTON Provider: Taurus Barr MD :1980 A ge:44 Y S ex:Male Date:04/16/2025 [facility] Subjective: * Chief Complaints: * ? left lower leg cellulitisWent to Urgent Care in [place] 04-13-25 was put on Doxycycline 100mg * HPI: S ymptom(s): patient is a 44 yo male has been on doxycycline 100 mg/ having chills and body aches. had taken advil so no fevers. * ROS: G eneral/Constitutional: Admits C hills. D enies F atigue. D enies F ever. D enies H eadache. E NT: Denies S ore throat. R espiratory: Denies C ough. D enies S hortness of breath at rest. D enies S hortness of breath with exertion. G astrointestinal: Denies D iarrhea. D enies N ausea. * Medical History: * Surgical History: * Hospitalization/Major Diagno stic Procedure: * Medications: T akingDoxycycline Hyclate 100 MG Capsule 1 capsule Orally Once a day Atorvastatin Calcium 10 MG Tablet TAKE 1 TABLET BY MOUTH EVERY DAY Orally Once a day Tamsulosin HCl 0.4 MG Capsule TAKE 1 CAPSULE BY MOUTH DAILY Taking Doxycycline Hyclate 100 MG Capsule 1 capsule Orally Once a day Taking Atorvastatin Calcium 10 MG Tablet TAKE 1 TABLET BY MOUTH EVERY DAY Orally Once a day Taking Tamsulosin HCl 0.4 MG Capsule TAKE 1 CAPSULE BY MOUTH DAILY Not-Taking/PRNLipitor 10 MG Tablet 1 tablet Orally Once a day Medication List reviewed and reconciled with the patientNot-Taking/PRN Lipitor 10 MG Tablet 1 tablet Orally Once a day Medication List reviewed and reconciled with the patient * Allergies: N .K.D.A.yes[Allergies Verified] Objective: * Vitals: H t: 67, Wt: 172, BMI:26.94, BP:102/60, Wt-k.02. weight is down 2 pounds since 12-14-24. * Examination: G eneral Examination: GENERAL APPEARANCE: a lert, well hydrated, in no distress.? HEAD: n ormocephalic. SKIN: a bnormal with a lesion with a sunken 1 inch center surrounded by 8 inches of erythema. HEART: n o murmurs, rubs, gallops, regular rate and rhythm.? LUNGS: n o wheezes, rales, rhonchi, good air movement, clear to auscultation bilaterally. Assessment: * Assessment: 1. [place] - L03.90 (Primary) Plan: * Treatment: 2. O thers Notes: ORDER PRINTED AND GIVEN TO KANNAN * Procedure Codes: * Follow Up: f riday * * Sign off status: Completed true * Provider: Taurus Barr MD Date: 04/16/2025 Generated for Mona vraghese/Chuy/eTransmitting on: 0 06/18/2025 12:12 PM EDT History and Physical Notes * HPI (History of Present Illness) Category Sub-Category Detail Notes Category Not es Symptom(s) patient is a 44 yo male has been on doxycycline 100 mg/ having chills and body aches. had taken advil so no fevers. Examination Category Sub-Category Detail Notes Category Not es General Examination GENERAL APPEARANCE: alert, w ell hydrated, in no distress HEAD: normocephalic HEART: no murmurs, rubs, ga llops, regular rate and rhythm LUNGS: no wheezes, rales, r honchi, good air movement, clear to auscultation bilaterally SKIN: abnormal with a lesi on with a sunken 1 inch center surrounded by 8 inches of erythema
--- OUTSIDE RECORDS SUMMARY | 2025-04-20 08:45 | XMS_ITS ---
Author Organization Domingo Barr MD Address [address] [place] [phone] Care Team Providers Care Jet Handler Name Role Phone Domingo Barr Primary Care Provider [phone] Allergies No Known Allergies REASON FOR VISIT WEDNESDAY F/U Medications Medication SIG (Take, Route, Frequency, Duration) Notes Start Date End Date Status Sulfamethoxazole-Trimetho prim 800-160 MG 1 tablet Orally twice a day 04/16/2025 Active Tamsulosin HCl 0.4 MG TAKE 1 CAPSULE BY MOUTH DAILY Active Lipitor 10 MG 1 tablet Orally Once a day for 30 Not-Taking Atorvastatin Calcium 10 MG TAKE 1 TABLET BY MOUTH EVERY DAY for 90 Active Vital Signs Blood pressure systolic 102 mm Hg 04/20/20 25 Blood pressure diastolic 70 mm Hg 025 Height 67 in 04/20/2025 Weight 170 lbs 04/20/2025 BMI 26.62 kg/m2 04/20/2025 weight is down 2 pounds [facility] 04-16-25 Encounters Encounter Location Date Provider Diagnosis Domingo Barr MD [address] [place] [address] [place] [phone] 04/20/2025 Domingo Barr Cellulitis L03.90 Assessments Encounter Date Diagnosis (ICD Code) Assessment Notes Treatment Notes Treatment Clinical Notes Section Notes 04/20/2025 Cellulitis (ICD-10 - L03.90) is starting to get better, will continue to monitor and will continue current regiment 04/20/2025 Other Order given to the patient Plan Of Treatment Medication Medication Name Sig Start Date Stop Date Notes Sulfamethoxazole-Trimethopri m 800-160 MG 1 tablet Orally twice a day 04/16/2025 Treatment Notes Assessment Notes Cellulitis is starting to get b thomas, will continue to monitor and will continue current regiment Other Order given to the p atient Future Test Test Name Order Date Lyme IgG/IgM w/reflex to WB 05/04/2025 Next Appt Details Provider Name:Domingo Farmer ier, 12/10/2025 07:45:00 AM, [address] [place] [address], [place] [address], [place], [place], [phone], Provider Name:Domingo Karen Marleny ier, 12/17/2025 03:30:00 PM, [address] [place] [address], Suite [facility], [place], [place], [phone], Progress Notes * Kannan GARCIADOB:1980 (44 yo M)Acc No.[id number]:04/20/2025 Progress Notes Patient: Kannan DUTTON Provider: Taurus Barr MD :1980 A ge:44 Y S ex:Male Date:04/20/2025 [facility] [place], [place] Subjective: * Chief Complaints: * F RIDAY F/U * HPI: S ymptom(s): patient is a 44 yo male here for follow up visit. * ROS: G eneral/Constitutional: Denies C hills. D enies F atigue. D enies F ever. D enies H eadache. E NT: Denies S ore throat. R espiratory: Denies C ough. D enies S hortness of breath at rest. D enies S hortness of breath with exertion. G astrointestinal: Ruba Choudhury iarrhea. D enies N ausea. * Medical History: * Surgical History: * Hospitalization/Major Diagno stic Procedure: * Medications: T akingTamsulosin HCl 0.4 MG Capsule TAKE 1 CAPSULE BY MOUTH DAILY Sulfamethoxazole-Trimethoprim 800-160 MG Tablet 1 tablet Orally twice a day Atorvastatin Calcium 10 MG Tablet TAKE 1 TABLET BY MOUTH EVERY DAY Taking Tamsulosin HCl 0.4 MG Capsule TAKE 1 CAPSULE BY MOUTH DAILY Taking Sulfamethoxazole- Trimethoprim 800-160 MG Tablet 1 tablet Orally twice a day Taking Atorvastatin Calcium 10 MG Tablet TAKE 1 TABLET BY MOUTH EVERY DAY Not-Taking/PRNLipitor 10 MG Tablet 1 tablet Orally Once a day Not-Taking/PRN Lipitor 10 MG Tablet 1 tablet Orally Once a day DiscontinuedDoxycycline Hyclate 100 MG Capsule 1 capsule Orally Once a day Medication List reviewed and reconciled with the patientDiscontinued Doxycycline Hyclate 100 MG Capsule 1 capsule Orally Once a day Medication List reviewed and reconciled with the patient * Allergies: N .K.D.A.yes[Allergies Verified] Objective: * Vitals: H t: 67, Wt: 170, BMI:26.62, BP:102/70, Wt-k.11. weight is down 2 pounds since 04-16-25. * Examination: G eneral Examination: GENERAL APPEARANCE: a lert, well hydrated, in no distress.? SKIN: a bnormal the erythema has diminished but the center is still firm.. Assessment: * Assessment: 1. [place]wey villela - L03.90 (Primary) Plan: * Treatment: 2. O thers Notes: Order given to the patient * Procedure Codes: * * Sign off status: Completed true * Provider: Taurus Barr MD Date: 04/20/2025 Generated for Mona varghese/Chyu/Kacey on: 0 06/18/2025 12:12 PM EDT History and Physical Notes * HPI (History of Present Illness) Category Sub-Category Detail Notes Category Not es Symptom(s) patient is a 44 yo male here for follow up visit Examination Category Sub-Category Detail Notes Category Not es General Examination GENERAL APPEARANCE: alert, w ell hydrated, in no distress SKIN: abnormal the erythem a has diminished but the center is still firm.
--- OUTSIDE RECORDS SUMMARY | 2025-06-18 03:00 | XMS_ITS ---
Author Organization Domingo Barr MD Address [address] [place] [phone] Care Team Providers Care Narrow Gauge Operator Name Role Phone Domingo Barr Primary Care Provider REASON FOR VISIT FASTING LIPID, LIVER PANEL Encounters Encounter Location Date Provider Diagnosis Domingo Barr MD [address] [place] [phone] 06/18/2025 Domingo Barr Pure hypercholestero lemia E78.00 Assessments Encounter Date Diagnosis (ICD Code) Assessment Notes Treatment Notes Treatment Clinical Notes Section Notes 06/18/2025 Pure hypercholesterolemia (ICD-10 - E78.00) Plan Of Treatment Pending Test Test Name Order Date Liver Panel 06/18/2025 Lipid Panel with Reflex 06/18/2025 Next Appt Details Provider Name:Domingo aguilar, 12/10/2025 07:45:00 AM, [address], Suite [facility], [place], [place], [phone], Provider Name:Domingo Farmer ier, 12/17/2025 03:30:00 PM, [address], [address], [place], [place], [phone], Progress Notes * Kannan GARCIADOB:1980 (44 yo M)Acc No.[id number]:06/18/2025 Progress Note Patient: Kannan DUTTON Provider: Taurus Barr MD :1980 A ge:44 Y S ex:Male Date:06/18/2025 Address:[address] [place], [place] [phone] Subjective: * Chief Complaints: * 1 . FASTING LIPID, LIVER PANEL. * Medical History: Objective: * Vitals: Assessment: * Assessment: 1. P ure hypercholesterolemia - E78.00 (Primary) Plan: * Treatment: * Procedure Codes: 3 6415 VENIPUNCT, ROUTINE* * * The named appointment provid er may or may not be the originator of this progress note, and it is not deemed complete until electronically signed by the appointment provider. Sign off status: Pending * Provider: Taurus Barr MD Date: 0 06/18/2025 Generated for Mona varghese/Chuy/Jesusitting on: 06/18/2025 12:12 PM EDT
[2025-06-18 11:04] LABS: Alanine Aminotransferase 54 U/L (0-40); Albumin Level 4.0 g/dL (3.5-5.0); Alkaline Phosphatase 60 U/L (39-117); Aspartate Amino Transferase 129 U/L (5-37); Cholesterol 204 mg/dL (<200); HDL Cholesterol 62 mg/dL (>40); Total Protein 6.6 g/dL (6.5-8.0); Triglycerides 67 mg/dL (<150)
--- OUTSIDE RECORDS SUMMARY | 2025-06-18 12:12 | XMS_ITS | Patient Health Record ---
Author Organization Domingo Barr MD Address [address] [place] [phone] Care Team Providers Care Transition Mgr Name Role Phone Momo Domingo Primary Care Provider [phone] Allergies No Known Allergies Results Component Value Reference Range Notes Complete Blood Count Auto Di ff Reviewed date:12/07/2024 12:18:52 PM Interpretation: Performing Lab:[facility], [address] [place] [phone] Notes/Report: White Blood Count 6.3 4.8-10.8 X10*3/uL [...] NRBC Abs Auto 0.000 0.0-0.012 X10*3/uL Comprehensive Oden. Panel Fa st Reviewed date:12/07/2024 04:04:53 PM Interpretation: Performing Lab:[facility], [address] [place] [phone] Notes/Report: Sodium 139 135-145 mmol/L Potassium 3.9 [...] Panel Reviewed date:12/07/2024 04:05:39 PM Interpretation: Performing Lab:[address] [phone] Notes/Report: Triglycerides 52 <150 mg/dL Desirable Triglyceride: [...] (Free>4and<10) Reviewed date:12/07/2024 12:16:01 PM Interpretation: Performing Lab:[address] [phone] Notes/Report: PSA,Total (Free>4and<10) 0.40 0.00-4.00 ng/mL A [...] t Reviewed date:12/07/2024 12:31:49 PM Interpretation: Performing Lab:[address] [phone] Notes/Report: Urine, Clean Catch Color Urine Yellow Appearance Urine Clear PH 6.5 5.0-9.0 Glucose Urine UA Negative Negative mg/dL Urine Blood Negative Negative Specific [place] - Urine 1.025 1.005-1.025 Urine Protein Negative [...] ff Reviewed date:04/16/2025 05:36:56 PM Interpretation: Performing Lab:[facility], [address] [place] [phone] Notes/Report: White Blood Count 5.7 4.8-10.8 X10*3/uL [...] WB Reviewed date:04/19/2025 02:49:32 PM Interpretation: Performing Lab:[address] [phone] Notes/Report: Lyme Abs Screen <0.90 Index Interpretation [...] is apparent. THIS TEST WAS PERFORMED AT: [facility] [address] [place] [phone] KATE PARKER MD Lyme Blot TNP Blood Culture (First) Reviewed date:04/22/2025 01:43:11 PM Interpretation: Performing Lab:[facility], [address] [place] [phone] Notes/Report: Blood Culture (First) No growth after 5 days. Blood Culture (Second) Reviewed date:04/22/2025 01:43:20 PM Interpretation: Performing Lab:[address] [phone] Notes/Report: Blood Culture (Second) No growth after 5 days. Hold Gold (Not yet reviewed by provider) Interpretation: Performing Lab:[facility], [address] [place] [phone] Notes/Report: Hold Gold See Note Specimen held untested for 24 hours; Call to request Chemistry testing. Reason For Referral No Information Medications Medication [...] BY MOUTH EVERY DAY for 90 Active Immunizations Vaccine Route Administration Date Status Comme nts DECLINED, FLU Unknown 07/24/2013 Administered Covid Vaccine Unknown 10/31/2020 Administered [facility] Covid Vaccine Unknown 12/06/2020 [...] Problem Status W/U Status Risk Notes Problem 37830778 Prostatism (N40.0) Active confirmed Problem Supraventricular premature beats (58857475) PAC (premature atrial contraction) (I49.1) Active confirmed Problem 759407481 History of hemor rhoids (Z87.19) Active confirmed Problem Abnormal liver function (25958905) Abnormal liver function (K76.89) Active confirmed Problem 832061059 Pure hypercholesterolemia (E78.00) Active confirmed Problem 26817569 Multilevel degenerative disc disease (M53.9) Active confirmed Vital Signs Blood pressure diastolic 70 mm Hg 04/20/2025 clara ght is down 2 pounds since 04-16-25 Height 67 in 04/20/2025 weight is down 2 pounds since 04-16-25 Blood pressure systolic 102 mm Hg 04/20/2025 weig ht is down 2 pounds since 04-16-25 Weight 170 lbs 04/20/2025 weight is down 2 pounds since 04-16-25 BMI 26.62 kg/m2 04/20/2025 weight is down 2 pounds since 04-16-25 Encounters Encounter Location Date Provider Diagnosis Domingo Barr MD [address] [place] [phone] 12/07/2024 Domingo Barr Blood tests for rout ine general physical examination Z00.00 ; Pure hypercholesterolemia E78.00 and Prostatism N40.0 Domingo Barr MD [address] [place] [address] Drive [address] [place] [id number] 06/18/2025 Domingo Barr Pure hypercholestero lemia E78.00 Domingo Barr MD [address] [place] [address] Drive [address] [place] [id number] 12/14/2024 Domingo Barr Pure hypercholestero lemia E78.00 ; Annual physical exam Z00.00 ; Elevated LFTs R79.89 ; Prostatism N40.0 ; Colon cancer screening Z12.11 and Depression screening Z13.31 Domingo Barr MD [address] [place] [id number] 04/16/2025 Domingo Barr Cellulitis L03.90 Domingo Barr MD [address] [place] [address] [address] [place] [phone] 04/20/2025 Domingo Barr Cellulitis L03.90 Assessments Encounter Date Diagnosis (ICD Code) Assessment Notes Treatment Notes Treatment Clinical Notes Section Notes 12/07/[address] tests [address] ine general physical examination (ICD-10 - Z00.00) 06/18/2025 Pure hypercholesterolemia (ICD-10 - E78.00) 12/14/2024 Pure hypercholesterolemia (ICD-10 - E78.00) stable, will continue current regiment 12/14/2024 Annual physical exam (ICD-10 - Z00.00) labs reviewed and discussed with patient 04/16/2025 Cellulitis (ICD-10 - L03.90) pending diagnostic labs , patient verbalized understanding of medication and directions for use 04/20/2025 Cellulitis (ICD-10 - L03.90) is starting to get better, will continue to monitor and will continue current regiment 12/07/2024 Pure hypercholesterolemia (ICD-10 - E78.00) 12/14/2024 Elevated LFTs (ICD-1 0 - R79.89) doing well, will continue to monitor 12/07/2024 Prostatism (ICD-10 - N40.0) 12/14/2024 Prostatism (ICD-10 - N40.0) stable, will contibue to monitor 12/14/2024 Colon cancer screeni ng (ICD-10 - Z12.11) guaiac negative 12/14/2024 Depression screening (ICD-10 - Z13.31) negative screen 04/16/2025 Other ORDER PRINTED AND GIVEN TO KANNAN 04/20/2025 Other Order given to the patient Plan Of Treatment Pending Test Test Name Order Date LIPID PANEL WITH REFLEX TO DIRECT LDL CT ABD & PELVIS WITH CONTRAST 10/12/2023 Liver Panel 06/18/2025 Lipid Panel with Reflex 06/18/2025 Hold Gold 06/18/2025 Blood Culture X2 04/16/2025 Future Test Test Name Order Date Lyme IgG/IgM w/reflex to WB 05/04/2025 Next Appt Details Provider Name:Domingo Farmer ier, 12/10/2025 07:45:00 AM, [address] [place] [address], [address], [place], [phone], Provider Name:Domingo Farmer ier, 12/17/2025 03:30:00 PM, [address] [facility], [address], [place], [place], [phone], Insurance Providers Payer Name Payer Address Payer Phone Subscriber Number Group Number Insured Name Patient Relationship to Insured Coverage Start Date Coverage End Date [facility] [facility] [address] [place], [place] [id number] [phone] [id number] Kannan Rodriguez Self - patient is the insured Medical (General) History Medical History History ICD Code 01/20/2013 - rectal bleeding - get colonos copy in 10 years
--- OUTSIDE RECORDS SUMMARY | 2025-06-18 12:13 | XMS_ITS | Patient Health Record ---
Author Organization [facility] Address [address] [place] [address] Care Team Providers Care Respiratory Clinician Name Role Phone Dmoingo Barr MD Primary Care Provider Mika Fisher Unavailable [phone] Reason For Referral No Information Social History [...] Status Risk Notes Problem Plantar fascial fibromatosis (33879030) Plantar fascial fibromatosis (M72.2) Active confirmed Plan Of Treatment No Information Insurance Providers Payer Name Payer Address Payer Phone Subscriber Number Group Number Insured Name Patient Relationship to Insured Coverage Start Date Coverage End Date [employer] [address] [place] [address] [id number] Kannan Rodriguez Self - patient is the insured Medical (General) History Medical History History ICD Code Chicken pox
--- OUTSIDE RECORDS SUMMARY | 2025-06-18 12:13 | XMS_ITS | Patient Health Record ---
Author Organization [facility] Address [address] [place] [address] Care Team Providers Care Furnace Combination Analyst Name Role Phone Momo PELAYO, Domingo Primary Care Provider James Rivers Unavailable [phone] Allergies No Known Allergies Reason For Referral [...] Status W/U Status Risk Notes Problem Dysphagia (77861367) Dysphagia (R13.10) Active confirmed Problem Elevated liver enzymes level (756791357) Elevated liver function tests (R79.89) Active confirmed Problem Fatty liver (K76.0) Active confirmed Plan Of Treatment Pending Test Test Name Order Date LIVER PROFILE 07/21/2022 LIVER PROFILE 03/25/2022 LDH 07/21/2022 LDH 03/25/2022 CPK 07/21/2022 CPK 03/25/2022 CBC w DIFF 03/25/2022 PROTHROMBIN TIME (PT, INR) 03/25/2022 HEPATITIS B, C PROFILE 03/25/2022 [id number] (A1A) 03/25/2022 ALDOLASE 07/21/2022 US ABD 03/25/2022 FLUOR. ANTINUCLEAR AB SCREEN (SAULO) 02/2022 Future Test Test Name Order Date UPPER GI ENDOSCOPY BALLOOON DILATION OF ESOPH 07/21/2022 Insurance Providers Payer Name Payer Address Payer Phone Subscriber Number Group Number Insured Name Patient Relationship to Insured Coverage Start Date Coverage End Date [facility] [address] [place] [phone] [id number] SHEYLA GARCIA Self - patient is the insured Medical (General) History Medical History History ICD Code Denies [place],DM,CVA,Lung disease,renal dise ase Hyperlipidemia Long-standing elevation of [...]
[2025-06-18 12:33] LABS: Reflex LDLD? No
== END 2025-06-18 10:44 | disposition home or self-care (01) ==
LOC: HO.LNP 10:43
PROVIDERS: Visit Provider Internal Medicine
DX: E78.00 Pure hypercholesterolemia, unspecified (principal)
CPT/HCPCS: 80061; 80076